=== PATIENT | female | born 1945 | race Caucasian/White ===

== ENCOUNTER → 2016-12-24 | Outpatient (CLI) | payer MEDICARE, OTHER ==
[~2016-12-24] MED LIST: DENOSUMAB 60 MG/ML 1 ML SYRINGE SQ NR
[2016-12-24 09:06] VITALS: BP 177/84; PULSE 88; RESP 16; TEMP 98.6
== END | disposition home or self-care (01) ==
LOC: PROCWHC3 08:41
PROVIDERS: ATTEND Family Medicine
DX: M81.0 Age-related osteoporosis without current pathological fracture (principal)
CPT/HCPCS: 96372; J0897

== ENCOUNTER → 2017-06-30 | Outpatient (CLI) | payer MEDICARE, OTHER ==
[~2017-06-30] MED LIST changes: -DENOSUMAB 60 MG/ML 1 ML SYRINGE SQ NR; +DENOSUMAB 60 MG/ML 1 ML SYRINGE SQ ONE
[2017-06-30 08:01] VITALS: BP 146/65; PULSE 66; RESP 18; TEMP 99.3
== END | disposition home or self-care (01) ==
LOC: PROCWHC3 07:44
PROVIDERS: ATTEND Family Medicine
DX: M81.0 Age-related osteoporosis without current pathological fracture (principal)
CPT/HCPCS: 96372; J0897

== ENCOUNTER → 2017-07-20 | Outpatient (CLI) | payer MEDICARE, OTHER ==
--- NOTE | 2017-07-22 11:35 | MM ---
Reason for exam: screening (asymptomatic). Last mammogram was performed 1 year ago. History: Patient is postmenopausal and is nulliparous. Family history of breast cancer in aunt. Took estrogen for 1 year 6 months beginning at age 56. Physical Findings: A clinical breast exam by your physician is recommended on an annual basis and results should be correlated with mammographic findings. MG 3D Screening Mammo W/Cad Bilateral CC and MLO view(s) were taken. Prior study comparison: July 16, 2016, right breast MG 3d work up w/cad RT. July 11, 2016, bilateral MG 3d screening mammo w/cad. Focal asymmetry in the right CC view. No significant changes when compared with prior studies. ASSESSMENT: Benign, BI-RAD 2 RECOMMENDATION: Routine screening mammogram of both breasts in 1 year.
== END | disposition home or self-care (01) ==
LOC: RADMAMWWP 08:11
PROVIDERS: ATTEND Family Medicine
DX: Z12.31 Encounter for screening mammogram for malignant neoplasm of breast (principal)
CPT/HCPCS: 77063; G0202

== ENCOUNTER → 2018-01-13 | Outpatient (CLI) | payer MEDICARE, OTHER ==
[2018-01-13 08:49] VITALS: BP 153/81; PULSE 72; RESP 16; TEMP 98.1
== END | disposition home or self-care (01) ==
LOC: PROCWHC3 08:16
PROVIDERS: ATTEND Family Medicine
DX: M81.0 Age-related osteoporosis without current pathological fracture (principal)
CPT/HCPCS: 96372; J0897

== ENCOUNTER → 2018-08-03 | Outpatient (CLI) | payer MEDICARE, OTHER ==
--- NOTE | 2018-08-03 09:42 | MM ---
Reason for exam: additional evaluation requested from prior study. Last mammogram was performed 1 year ago. History: Patient is postmenopausal and is nulliparous. Family history of breast cancer in aunt. Took estrogen for 1 year 6 months beginning at age 56. Physical Findings: Nurse did not find any significant physical abnormalities on exam. MG 3D Diag Mammo W/Cad AVERY Bilateral CC and MLO view(s) were taken. Prior study comparison: July 20, 2017, bilateral MG 3d screening mammo w/cad. July 16, 2016, right breast MG 3d work up w/cad RT. There are scattered fibroglandular densities. Finding: There are typically benign circumscribed round masses in the right breast. No suspicious abnormality. No significant changes in finding since July 20, 2017 and July 16, 2016. These results were verbally communicated with the patient and result sheet given to the patient on 08/03/18. ASSESSMENT: Benign, BI-RAD 2 RECOMMENDATION: Routine screening mammogram of both breasts in 1 year.
== END ==
LOC: RADMAMWWP 07:54
PROVIDERS: ATTEND Family Medicine
DX: Z12.31 Encounter for screening mammogram for malignant neoplasm of breast (principal); R92.8 Other abnormal and inconclusive findings on diagnostic imaging of breast
CPT/HCPCS: 77066; G0279; 77062

== ENCOUNTER → 2018-08-03 | Outpatient (CLI) | payer MEDICARE, OTHER ==
[2018-08-03 09:40] VITALS: BP 166/75; PULSE 73; RESP 16; TEMP 97.6
== END ==
LOC: PROCWHC3 09:18
PROVIDERS: ATTEND Family Medicine
DX: M81.0 Age-related osteoporosis without current pathological fracture (principal)
CPT/HCPCS: 96372; J0897

== ENCOUNTER → 2019-02-03 | Outpatient (CLI) | payer MEDICARE, OTHER ==
[2019-02-03 11:15] VITALS: BP 134/75; PULSE 70; RESP 18; TEMP 97.6
== END ==
LOC: PROCWHC3 10:55
PROVIDERS: ATTEND Family Medicine
DX: M81.0 Age-related osteoporosis without current pathological fracture (principal)
CPT/HCPCS: 96372; J0897

== ENCOUNTER → 2019-07-29 | Outpatient (CLI) | payer MEDICARE, OTHER ==
--- NOTE | 2019-07-29 13:32 | US ---
EXAMINATION TYPE: US venous doppler duplex LE LT DATE OF EXAM: 07/29/2019 1:22 PM COMPARISON: NONE CLINICAL HISTORY: L leg, I83.893 Varicose vein of Lower leg. Left leg edema. SIDE PERFORMED: Left TECHNIQUE: The lower extremity deep venous system is examined utilizing real time linear array sonog saniya with graded compression, doppler sonography and color-flow sonography. VESSELS IMAGED: External Iliac Vein (EIV) Common Femoral Vein Deep Femoral Vein Greater Saphenous Vein * Femoral Vein Popliteal Vein Small Saphenous Vein * Proximal Calf Veins (* superficial vessels) Left Leg: Negative for DVT Grayscale, color doppler, spectral doppler imaging performed of the deep veins of the left lower extr emity. There is normal flow, compressibility, vascular waveforms. IMPRESSION: No sonographic evidence of deep venous thrombosis within the left lower extremity.
== END | disposition home or self-care (01) ==
LOC: RADUSWWP 12:57
PROVIDERS: ATTEND Family Medicine
DX: I83.893 Varicose veins of bilateral lower extremities with other complications (principal)

== ENCOUNTER → 2019-08-08 | Outpatient (CLI) | payer MEDICARE, OTHER ==
[~2019-08-08] MED LIST changes: +DENOSUMAB 60 MG/ML 1 ML SYRINGE SQ NR; -DENOSUMAB 60 MG/ML 1 ML SYRINGE SQ ONE
[2019-08-08 11:23] VITALS: BP 144/81; PULSE 72; RESP 16; TEMP 98.4
== END | disposition home or self-care (01) ==
LOC: PROCWHC3 10:49
PROVIDERS: ATTEND Family Medicine
DX: M81.0 Age-related osteoporosis without current pathological fracture (principal)
CPT/HCPCS: 96372; J0897

== ENCOUNTER → 2019-09-02 | Outpatient (CLI) | payer MEDICARE, OTHER ==
--- NOTE | 2019-09-02 11:48 | CT ---
EXAMINATION TYPE: CT sinus wo con DATE OF EXAM: 09/02/2019 COMPARISON: HISTORY: Sinusitis CT DLP: [address] of the paranasal sinuses was performed in the axial and coronal planes. Bone and soft tissue settings are submitted. The paranasal sinuses demonstrate normal aeration and development. The paranasal sinuses are free of mucosal thickening or air fluid level. The osteal meatal units are patent bilaterally. The nasal septum is midline. No bony destructive changes are seen within the field of view. IMPRESSION: Normal unenhanced CT of the paranasal sinuses.
== END | disposition home or self-care (01) ==
LOC: RADCTMAIN 11:23
PROVIDERS: ATTEND Otolaryngology
DX: J32.9 Chronic sinusitis, unspecified (principal)
CPT/HCPCS: 70486

== ENCOUNTER → 2019-10-04 | Outpatient (CLI) | payer MEDICARE, OTHER ==
--- NOTE | 2019-10-10 11:38 | MM ---
Reason for exam: screening (asymptomatic). Last mammogram was performed 1 year and 2 months ago. History: Patient is postmenopausal and is nulliparous. Family history of breast cancer in aunt. Took estrogen for 1 year 6 months beginning at age 56. Physical Findings: A clinical breast exam by your physician is recommended on an annual basis and results should be correlated with mammographic findings. MG 3D Screening Mammo W/Cad Bilateral CC and MLO view(s) were taken. CV view(s) were taken of the left breast. Prior study comparison: August 03, 2018, bilateral MG 3d diag mammo w/cad AVERY. July 20, 2017, bilateral MG 3d screening mammo w/cad. There are scattered fibroglandular densities. There are benign appearing round calcifications in the left breast. There is chronic nodularity bilaterally. There is no new dominant lesion. Asymmetric breast tissue in the right breast. ASSESSMENT: Benign, BI-RAD 2 RECOMMENDATION: Routine screening mammogram of both breasts in 1 year.
== END | disposition home or self-care (01) ==
LOC: RADMAMWWP 09:00
PROVIDERS: ATTEND Family Medicine
DX: Z12.31 Encounter for screening mammogram for malignant neoplasm of breast (principal)
CPT/HCPCS: 77063; 77067

== ENCOUNTER → 2020-02-16 | Outpatient (CLI) | payer MEDICARE, OTHER ==
[2020-02-16 07:34] VITALS: BP 163/84; PULSE 90; RESP 16; TEMP 98.6
== END | disposition home or self-care (01) ==
LOC: PROCWHC3 07:14
PROVIDERS: ATTEND Family Medicine
DX: M81.0 Age-related osteoporosis without current pathological fracture (principal)
CPT/HCPCS: 96372; J0897

== ENCOUNTER → 2020-08-22 | Outpatient (CLI) | payer MEDICARE, OTHER ==
[~2020-08-22] MED LIST changes: -DENOSUMAB 60 MG/ML 1 ML SYRINGE SQ NR; +DENOSUMAB 60 MG/ML 1 ML SYRINGE SQ ONE
[2020-08-22 08:18] VITALS: BP 163/84; PULSE 66; RESP 16; TEMP 97.6
== END | disposition home or self-care (01) ==
LOC: PROCWHC3 07:48
PROVIDERS: ATTEND Family Medicine
DX: M81.0 Age-related osteoporosis without current pathological fracture (principal)
CPT/HCPCS: 96372; J0897

== ENCOUNTER → 2020-11-20 | Outpatient (CLI) | payer MEDICARE, OTHER ==
--- NOTE | 2020-11-20 11:59 | MM ---
Reason for exam: screening (asymptomatic). Last mammogram was performed 1 year and 2 months ago. History: Patient is postmenopausal and is nulliparous. Family history of breast cancer in aunt. Took estrogen for 1 year 6 months beginning at age 56. Physical Findings: A clinical breast exam by your physician is recommended on an annual basis and results should be correlated with mammographic findings. MG 3D Screening Mammo W/Cad Bilateral CC and MLO view(s) were taken. Prior study comparison: October 04, 2019, bilateral MG 3d screening mammo w/cad. August 03, 2018, bilateral MG 3d diag mammo w/cad AVERY. There are scattered fibroglandular densities. There is chronic nodularity bilaterally. Focal asymmetry 8mm left middle depth on MLO CC . This finding is changed when compared with previous exams. ASSESSMENT: Incomplete: need additional imaging evaluation, BI-RAD 0 RECOMMENDATION: Special view mammogram of the left breast. If lesion persists on supplemental views, image directed ultrasound is recommended. [facility] will attempt to contact patient to return for supplemental views and ultrasound if indicated.
== END ==
LOC: RADMAMWWP 07:36
PROVIDERS: ATTEND Family Medicine
DX: Z12.31 Encounter for screening mammogram for malignant neoplasm of breast (principal); Z78.0 Asymptomatic menopausal state
CPT/HCPCS: 77063; 77067

== ENCOUNTER → 2020-11-26 | Outpatient (CLI) | payer MEDICARE, OTHER ==
--- NOTE | 2020-11-26 10:47 | MM ---
Reason for exam: additional evaluation requested from abnormal screening. Last mammogram was performed less than 1 month ago. History: Patient is postmenopausal and is nulliparous. Family history of breast cancer in aunt. Took estrogen for 1 year 6 months beginning at age 56. Physical Findings: Nurse did not find any significant physical abnormalities on exam. MG 3D Work Up W/Cad LT Spot compression CC and LM view(s) were taken of the left breast. Prior study comparison: November 20, 2020, bilateral MG 3d screening mammo w/cad. October 04, 2019, bilateral MG 3d screening mammo w/cad. August 03, 2018, bilateral MG 3d diag mammo w/cad AVERY. July 20, 2017, bilateral MG 3d screening mammo w/cad. July 11, 2016, bilateral MG 3d screening mammo w/cad. March 14, 2011, bilateral digital screening mammo w/CAD. There are scattered fibroglandular densities. 7mm elongated asymmetric density while more defined, has an appearance similar to 2010. Not seen on the MLO or lateral view, 6 month follow up recommended. These results were verbally communicated with the patient and result sheet given to the patient on 11/26/20. ASSESSMENT: Probably benign, BI-RAD 3 RECOMMENDATION: Follow-up diagnostic mammogram of the left breast in 6 months.
== END ==
LOC: RADMAMWWP 09:39
PROVIDERS: ATTEND Family Medicine
DX: R92.8 Other abnormal and inconclusive findings on diagnostic imaging of breast (principal)
CPT/HCPCS: 77065; G0279; 77061

== ENCOUNTER → 2021-02-21 | Outpatient (CLI) | payer MEDICARE, OTHER ==
[~2021-02-21] MED LIST changes: +DENOSUMAB 60 MG/ML 1 ML SYRINGE SQ NR; -DENOSUMAB 60 MG/ML 1 ML SYRINGE SQ ONE
[2021-02-21 08:08] VITALS: BP 140/73; PULSE 71; RESP 18; TEMP 98.6
== END ==
LOC: PROCWHC3 07:46
PROVIDERS: ATTEND Family Medicine
DX: M81.0 Age-related osteoporosis without current pathological fracture (principal); Z88.6 Allergy status to analgesic agent; Z88.5 Allergy status to narcotic agent; Z88.1 Allergy status to other antibiotic agents
CPT/HCPCS: 96372

== ENCOUNTER → 2021-06-04 | Outpatient (CLI) | payer MEDICARE, OTHER ==
--- NOTE | 2021-06-04 10:07 | MM ---
Reason for exam: follow-up at short interval from prior study. Last mammogram was performed 6 months ago. History: Patient is postmenopausal and is nulliparous. Family history of breast cancer in aunt. Took estrogen for 1 year 6 months beginning at age 56. Physical Findings: Nurse did not find any significant physical abnormalities on exam. MG 3D Diag Mammo W/Cad LT CC, MLO, and XCCL view(s) were taken of the left breast. Prior study comparison: November 20, 2020, bilateral MG 3d screening mammo w/cad. October 04, 2019, bilateral MG 3d screening mammo w/cad. There are scattered fibroglandular densities. There are benign appearing round calcifications in the left breast. There is chronic nodularity in the left breast. There is no discrete abnormality. These results were verbally communicated with the patient and result sheet given to the patient on 06/04/21. ASSESSMENT: Benign, BI-RAD 2 RECOMMENDATION: Return to routine screening mammogram schedule for both breasts. Back on schedule.
== END | disposition home or self-care (01) ==
LOC: RADMAMWWP 08:06
PROVIDERS: ATTEND Family Medicine
DX: N64.89 Other specified disorders of breast (principal); R92.1 Mammographic calcification found on diagnostic imaging of breast; Z78.0 Asymptomatic menopausal state; Z80.3 Family history of malignant neoplasm of breast; Z79.818 Long term (current) use of other agents affecting estrogen receptors and estrogen levels
CPT/HCPCS: 77065; G0279; 77061

== ENCOUNTER → 2021-08-26 | Outpatient (CLI) | payer MEDICARE, OTHER ==
[2021-08-26 09:51] VITALS: BP 190/86; PULSE 86; RESP 16; TEMP 97.8
== END ==
LOC: PROCWHC3 08:44
PROVIDERS: ATTEND Family Medicine
DX: M81.0 Age-related osteoporosis without current pathological fracture (principal); Z88.6 Allergy status to analgesic agent; Z88.5 Allergy status to narcotic agent; Z88.1 Allergy status to other antibiotic agents
CPT/HCPCS: 96372; J0897

== ENCOUNTER → 2021-11-21 | Outpatient (CLI) | payer MEDICARE, OTHER ==
--- NOTE | 2021-11-25 10:52 | MM ---
Reason for exam: screening (asymptomatic). Last mammogram was performed 6 months ago. History: Patient is postmenopausal and is nulliparous. Family history of breast cancer in aunt. Took estrogen for 1 year 6 months beginning at age 56. Physical Findings: A clinical breast exam by your physician is recommended on an annual basis and results should be correlated with mammographic findings. MG 3D Screening Mammo W/Cad Bilateral CC and MLO view(s) were taken. Prior study comparison: June 04, 2021, left breast MG 3d diag mammo w/cad LT. November 26, 2020, left breast MG 3d work up w/cad LT. There are scattered fibroglandular densities. There is chronic nodularity bilaterally. No significant changes when compared with prior studies. ASSESSMENT: Benign, BI-RAD 2 RECOMMENDATION: Routine screening mammogram of both breasts in 1 year.
== END | disposition home or self-care (01) ==
LOC: RADMAMWWP 07:55
PROVIDERS: ATTEND Family Medicine
DX: Z12.31 Encounter for screening mammogram for malignant neoplasm of breast (principal); Z78.0 Asymptomatic menopausal state; Z80.3 Family history of malignant neoplasm of breast
CPT/HCPCS: 77063; 77067

== ENCOUNTER 2021-12-09 14:46 | Observation (INO) | payer MEDICARE, OTHER ==
[2021-12-09 15:51] LABS: Basophils % (A) 1 %; Eosinophils # (A) 0.1 k/uL (0-0.7); Eosinophils % (A) 2 %; HCT 47.7 % (34.0-46.0); HGB 15.1 gm/dL (11.4-16.0); Lymphocytes # (A) 1.4 k/uL (1.0-4.8); Lymphocytes % (A) 28 %; MCH 30.7 pg (25.0-35.0); MCHC 31.6 g/dL (31.0-37.0); MCV 97.3 fL (80.0-100.0); Mean Platelet Volume 9.6; Monocytes # (A) 0.4 k/uL (0-1.0); Monocytes % (A) 8 %; Neutrophils % (A) 61 %; Platelet Count 156 k/uL (150-450); RDW 13.2 % (11.5-15.5)
[2021-12-09 16:00] LABS: Partial Thromboplastin Time 22.4 sec (22.0-30.0); Prothrombin Time 10.5 sec (9.0-12.0)
[2021-12-09 16:02] LABS: ALT 19 U/L (4-34); AST 25 U/L (14-36); African American GFR (CKD) >90 (>60 ml/min/1.73 sqM); Albumin 4.5 g/dL (3.5-5.0); Alkaline Phosphatase 69 U/L (38-126); Anion Gap 10 mmol/L; Blood Urea Nitrogen 12 mg/dL (7-17); Calcium 9.4 mg/dL (8.4-10.2); Carbon Dioxide 25 mmol/L (22-30); Chloride 107 mmol/L (98-107); Glucose 117 mg/dL (74-99); Non-African American GFR(CKD) 86 (>60 ml/min/1.73 sqM); Sodium 142 mmol/L (137-145); Total Bilirubin 0.7 mg/dL (0.2-1.3); Total Protein 7.8 g/dL (6.3-8.2)
--- NOTE | 2021-12-09 16:13 | XR ---
EXAMINATION TYPE: XR chest 2V DATE OF EXAM: 12/09/2021 COMPARISON: Chest x-ray 04/02/2011 HISTORY: Chest pain TECHNIQUE: Frontal and lateral views of the chest are obtained. FINDINGS: There is no focal air space opacity, pleural effusion, or pneumothorax seen. The cardiac silhouette size is within normal limits. Aorta is dense The osseous structures are significant for a rthropathy acromioclavicular joints similar to prior, there is multilevel thoracic spondylosis. There are overlying leads. IMPRESSION: No acute cardiopulmonary process.
[2021-12-09] MEDS ORDERED: NALOXONE 0.4 MG/ML 1 ML VIAL IV PRN (16:36)
--- NOTE | 2021-12-09 16:36 | ED ---
General Adult HPI - General Chief complaint: Chest Pain Stated complaint: Chest Pain Time Seen by Provider: 12/09/21 15:03 Source: patient, RN notes reviewed, old records reviewed Mode of arrival: ambulatory Limitations: no limitations - History of Present Illness Initial comments: Patient is a 76-year-old female with past medical history remarkable for obesity, family medical history of cardiac disease, hypertension, hyperlipidemia who presents emergency Department complaining of intermittent chest pain/discomfort over the last week. She states it is over the superior aspect substernally with no known palliative or provocative factors except for sometimes turning her neck. States she has chronic bilateral shoulder discomfort as well which is been unchanged. EKG was done at the outside physician's office and there was concern and wanted her to be evaluated for her chest pain. 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 No shortness of breath. Denies abdominal pain, nausea, vomiting. Denies any current symptoms including chest pain. His no other acute complaints at this time. Denies fevers, chills, cough. Presents over concern for chest pain. - Related Data Home Medications Medication Instructions Recorded Confirmed Aspirin 325 mg PO DAILY 12/24/16 12/09/21 Cetirizine HCl [Zyrtec] 10 mg PO DAILY 12/24/16 12/09/21 Pravastatin Sodium [Pravachol] 40 mg PO DAILY 12/24/16 12/09/21 allopurinoL [Zyloprim] 100 mg PO DAILY 12/24/16 12/09/21 amLODIPine BESYLATE/BENAZEPRIL 1 cap PO DAILY 12/24/16 12/09/21 [amLODIPine BESYLATE/BENAZEPRIL 5-20 mg] Cholecalciferol [Vitamin D3 (125 125 mcg PO DAILY 12/09/21 12/09/21 Mcg = 5000 Iu)] Cinnamon Bark [Cinnamon] 1,000 mg PO DAILY 12/09/21 12/09/21 Cyanocobalamin (Vitamin B-12) 1,000 mcg PO DAILY 12/09/21 12/09/21 [Vitamin B-12] Docusate [Colace] 200 mg PO DAILY 12/09/21 12/09/21 Psyllium Husk [Metamucil] 0.4 gm PO DAILY 12/09/21 12/09/21 Allergies Allergy/AdvReac Type Severity Reaction Status Date / Time cefaclor [From Ceclor] Allergy Dyspnea Verified 12/09/21 16:22 hydrocodone [From Vicodin] Allergy Nausea Verified 12/09/21 16:22 moxifloxacin [From Avelox] Allergy Dyspnea Verified 12/09/21 16:22 Review of Systems ROS Statement: Those systems with pertinent positive or pertinent negative responses have been documented in the HPI. Review of Systems: CONST: Denies fever EYES: Denies blurry vision ENT: Denies nasal congestion C/V: Denies current chest pain. RESP: Denies shortness of breath GI: Denies abdominal pain : Denies dysuria SKIN: Denies rash. MSK: Denies joint pain. NEURO: Denies headache ROS Other: All systems not noted in ROS Statement are negative. Past Medical History Past Medical History: Hyperlipidemia, Hypertension, Osteoarthritis (OA) Additional Past Medical History / Comment(s): L wrist fx December 02 History of Any Multi-Drug Resistant Organisms: None Reported Past Surgical History: Orthopedic Surgery Additional Past Surgical History / Comment(s): eye surgery repair retina/cataracts 2010 shattered left ankle. LEFT ROTATOR CUFF SURGERY - 2019 Past Anesthesia/Blood Transfusion Reactions: No Reported Reaction Past Psychological History: No Psychological Hx Reported Smoking Status: Never smoker - Past Family History Father Family Medical History: Diabetes Mellitus Additional Family Medical History / Comment(s): quadruple bypass Mother Family Medical History: AFIB Son(s) Family Medical History: Asthma Additional Family Medical History / Comment(s): exzema Daughter(s) Additional Family Medical History / Comment(s): psoriasis and psoriatic arthritis General Exam - General Exam Comments Initial Comments: General: Appears in no acute distress. HEAD: Normal with no signs of head trauma. EYES: PERRLA, EOMI, conjunctiva normal, no discharge. ENT: Hearing grossly intact, normal oropharynx. RESPIRATORY: Clear breath sounds bilaterally. No wheezes, rales, or rhonchi. C/V: Regular rate and rhythm. S1 and S2 auscultated, no edema, peripheral pulses 2+ and intact throughout ABD: Abd is soft, nontender, nondistended EXT: Normal range of motion, no obvious deformity SKIN: No rashes or lesions observed on exposed skin. NEURO: Alert and oriented x 4. Cranial nerves II-XII intact. No focal sensory or strength deficits. Limitations: no limitations Course Vital Signs 12/09/21 14:48 Temperature 97.6 F Pulse Rate 92 Respiratory 18 Rate Blood Pressure 153/80 O2 Sat by Pulse 97 Oximetry Medical Decision Making - Medical Decision Making The patient's presentation and physical exam, I'm concerned for cardiopulmonary etiology for her current symptoms. Therefore cardiac workup will be obtained. She currently is asymptomatic at this time. Patient already received 325mg aspirin at the primary care physician office. She was in agreement this plan. It could be muscle skeletal in nature. EKG showed no signs of acute ischemia. Chest x-ray revealed no acute cardiopulmonary process. Laboratory studies are remarkable for a negative troponin. Remainder the labs are unremarkable. On reevaluation, patient's chest pain remains asymptomatic. Patient's heart score is moderate at 4. I discussed results with her. I would like to admitted to the hospital at this time to observation telemetry. Patient was in agreement this plan.Patient's vital signs throughout her stay remain within normal limits. She remains asymptomatic throughout her initial stay in the emergency department prior to admission. I spoke with the admitting physician, Dr. Crespo who was in agreement with the plan. Patient was admitted to observation telemetry. Cardiology is consulted to evaluate the patient the morning. Troponins will be trended. - Lab Data Result diagrams: 12/09/21 15:46 12/09/21 15:46 Lab Results 12/09/21 12/09/21 12/09/21 Range/Units 15:46 15:46 15:46 WBC 5.0 (3.8-10.6) k/uL RBC 4.90 (3.80-5.40) m/uL Hgb 15.1 (11.4-16.0) gm/dL Hct 47.7 H (34.0-46.0) % MCV 97.3 (80.0-100.0) fL MCH 30.7 (25.0-35.0) pg MCHC 31.6 (31.0-37.0) g/dL RDW 13.2 (11.5-15.5) % Plt Count 156 (150-450) k/uL MPV 9.6 Neutrophils % 61 % Lymphocytes % 28 % Monocytes % 8 % Eosinophils % 2 % Basophils % 1 % Neutrophils # 3.0 (1.3-7.7) k/uL Lymphocytes # 1.4 (1.0-4.8) k/uL Monocytes # 0.4 (0-1.0) k/uL Eosinophils # 0.1 (0-0.7) k/uL Basophils # 0.0 (0-0.2) k/uL PT 10.5 (9.0-12.0) sec INR 1.0 (<1.2) APTT 22.4 (22.0-30.0) sec Sodium 142 (137-145) mmol/L Potassium 4.0 (3.5-5.1) mmol/L Chloride 107 (98-107) mmol/L Carbon Dioxide 25 (22-30) mmol/L Anion Gap 10 mmol/L BUN 12 (7-17) mg/dL Creatinine 0.69 (0.52-1.04) mg/dL Est GFR (CKD-EPI)AfAm >90 (>60 ml/min/1.73 sqM) Est GFR (CKD-EPI)NonAf 86 (>60 ml/min/1.73 sqM) Glucose 117 H (74-99) mg/dL Calcium 9.4 (8.4-10.2) mg/dL Magnesium 2.0 (1.6-2.3) mg/dL Total Bilirubin 0.7 (0.2-1.3) mg/dL AST 25 (14-36) U/L ALT 19 (4-34) U/L Alkaline Phosphatase 69 (38-126) U/L Troponin I (0.000-0.034) ng/mL Total Protein 7.8 (6.3-8.2) g/dL Albumin 4.5 (3.5-5.0) g/dL 12/09/21 Range/Units 15:46 WBC (3.8-10.6) k/uL RBC (3.80-5.40) m/uL Hgb (11.4-16.0) gm/dL Hct (34.0-46.0) % MCV (80.0-100.0) fL MCH (25.0-35.0) pg MCHC (31.0-37.0) g/dL RDW (11.5-15.5) % Plt Count (150-450) k/uL MPV Neutrophils % % Lymphocytes % % Monocytes % % Eosinophils % % Basophils % % Neutrophils # (1.3-7.7) k/uL Lymphocytes # (1.0-4.8) k/uL Monocytes # (0-1.0) k/uL Eosinophils # (0-0.7) k/uL Basophils # (0-0.2) k/uL PT (9.0-12.0) sec INR (<1.2) APTT (22.0-30.0) sec Sodium (137-145) mmol/L Potassium (3.5-5.1) mmol/L Chloride (98-107) mmol/L Carbon Dioxide (22-30) mmol/L Anion Gap mmol/L BUN (7-17) mg/dL Creatinine (0.52-1.04) mg/dL Est GFR (CKD-EPI)AfAm (>60 ml/min/1.73 sqM) Est GFR (CKD-EPI)NonAf (>60 ml/min/1.73 sqM) Glucose (74-99) mg/dL Calcium (8.4-10.2) mg/dL Magnesium (1.6-2.3) mg/dL Total Bilirubin (0.2-1.3) mg/dL AST (14-36) U/L ALT (4-34) U/L Alkaline Phosphatase (38-126) U/L Troponin I <0.012 (0.000-0.034) ng/mL Total Protein (6.3-8.2) g/dL Albumin (3.5-5.0) g/dL - EKG Data -: EKG Interpreted by Me EKG Comments: 12-lead Electrocardiogram Interpretation Note EKG was reviewed and interpreted by myself. 12-lead ECG performed at 1501 is interpreted by me as revealing normal sinus rhythm at a rate of 75 beats per minute. [place] is normal. VT interval is 126 ms, QRS duration is 92 ms, QTc is 409 ms.. There were no ST or T wave abnormalities to suggest myocardial ischemia or injury. R wave progression across the precordium was satisfactory. By my interpretation this EKG is non-diagnostic for acute ischemia. Disposition Clinical Impression: Chest pain of unknown etiology Disposition: ADMITTED IP TO THIS [facility] Condition: Stable Referrals: Neil Rivera MD [Primary Care Provider] - 1-2 days
--- NOTE | 2021-12-09 17:29 | P.HPIM ---
History of Present Illness H&P Date: 12/09/21 History of Presenting Illness: Patient is a very pleasant 76-year-old female with past medical history of nonobstructive coronary artery disease, hypertension, hyperlipidemia, osteoarthritis, previous PE status post long bone fracture (no longer on anticoagulation) and obesity. She presented to the emergency department with a chief complaint of chest pain/discomfort. Patient reports experiencing intermittent chest pain over the past week. She reports this pain is similar to the pain she gets from her osteoarthritis, but also states that this is dif ferent because this pain has continued throughout the week and will present at any time including while at rest or with movement, but is not reproducible. Patient denies having any associated symptoms including headache, lightheadedness, dizziness, palpitations, cough, congestion, or shortness of b reath. She reports chronic bilateral lower extremity edema worse on the left resulting from previous injury and surgical repair and states this edema is unchanged. Patient states a significant family history of cardiovascular disease and reports that she was seen by a tier lift operator, Dr. Ja steven oximately 16 years ago and states at that time she underwent a stress test which was abnormal and was then taken for cardiac cath, patient states that she does not recall the exact findings of the cardiac cath but remembers the tier lift operator telling her that she only had a 20% blockage and that it was nothing to worry about. In the emergency department patient underwent full evaluation. EKG was completed showing normal sinus rhythm at 75 bpm with no noted T-wave or ST abnormalities showing no signs of acute ischemia. Chest x-ray was negative for acute cardiopulmonary process. CBC, CMP, and coags all unremarkable. Troponin less than 0.012. Vital signs stable. Patient was admitted under our services with consultation to cardiology. Review of systems: Pertinent positives and negatives as discussed in HPI, a complete review of systems was performed and all other systems are negative. Physical exam: Vital signs reviewed and stable. General: Nontoxic, no distress and appears stated age. Derm: Skin warm and dry, normal coloration for ethnicity. Head: Atraumatic, normocephalic and symmetric. Eyes: EOMs intact, no lid lag, and anicteric sclera Mouth: no lip lesions, mucus membranes moist Cardiovascular: regular rate and rhythm with normal S1S2, no murmur, positive posterior tibial pulses bilaterally, and cap refill < 2 seconds. Lungs: Respirations even, regular, and unlabored on room air. Lungs CTA bilaterally, no rhonchi, no rales, no wheezing, and no accessory muscle usage. Abdominal: Obese abdomen soft, nontender to palpation, no guarding, no appreciable organomegaly Ext: ROM intact. No gross muscle atrophy, bilateral lower extremity edema worse on left, no contractures. Bilateral lower extremity venous discoloration. Neuro: Speech clear, face symmetrical and CN II-XII grossly intact with no noted focal neuro deficits Psych: Alert and oriented to person, place, time, and situation. Appropriate and pleasant affect. Assessment and Plan of Care: Chest pain, rule out acute coronary event -Cardiology consult, appreciate further recommendations -Telemetry monitoring -Trend troponins -Cardiac diet, NPO at midnight -Aspirin, atorvastatin, and metoprolol -Lipid profile with a.m. labs. -Echocardiogram Hypertension -Monitor vital signs and continue daily medication regimen with amlodipine/benazepril. Hyperlipidemia -Continue daily medication regimen with pravastatin. -Lipid profile with a.m. labs The patient is admitted with an anticipated less than 2 midnight stay for evaluation of chest pain. CODE STATUS: DO NOT RESUSCITATE/DO NOT INTUBATE DVT prophylaxis: Heparin Discussed with: Patient and RN Anticipated discharge date: 1-[address]: Home A total of 41 minutes was spent on the care of this complex patient more than 50% of the time was spent in counseling and care coordination. I reviewed the documentation as provided by the NATHALIA above, who is the original author of this note. I agree with the documented assessment and plan, with the following changes: none Past Medical History Past Medical History: Hyperlipidemia, Hypertension, Osteoarthritis (OA) Additional Past Medical History / Comment(s): L wrist fx December 02 History of Any Multi-Drug Resistant Organisms: None Reported Past Surgical History: Orthopedic Surgery Additional Past Surgical History / Comment(s): eye surgery repair retina/cataracts 2011 shattered left ankle. LEFT ROTATOR CUFF SURGERY - 2019 Past Anesthesia/Blood Transfusion Reactions: No Reported Reaction Past Psychological History: No Psychological Hx Reported Smoking Status: Never smoker - Past Family History Father Family Medical History: Diabetes Mellitus Additional Family Medical History / Comment(s): quadruple bypass Mother Family Medical History: AFIB Son(s) Family Medical History: Asthma Additional Family Medical History / Comment(s): exzema Daughter(s) Additional Family Medical History / Comment(s): psoriasis and psoriatic arthritis Medications and Allergies Home Medications Medication Instructions Recorded Confirmed Type Aspirin 325 mg PO DAILY 12/24/16 12/09/21 History Cetirizine HCl [Zyrtec] 10 mg PO DAILY 12/24/16 12/09/21 History Pravastatin Sodium [Pravachol] 40 mg PO DAILY 12/24/16 12/09/21 History allopurinoL [Zyloprim] 100 mg PO DAILY 12/24/16 12/09/21 History amLODIPine BESYLATE/BENAZEPRIL 1 cap PO DAILY 12/24/16 12/09/21 History [amLODIPine BESYLATE/BENAZEPRIL 5-20 mg] Cholecalciferol [Vitamin D3 (125 125 mcg PO DAILY 12/09/21 12/09/21 History Mcg = 5000 Iu)] Cinnamon Bark [Cinnamon] 1,000 mg PO DAILY 12/09/21 12/09/21 History Cyanocobalamin (Vitamin B-12) 1,000 mcg PO DAILY 12/09/21 12/09/21 History [Vitamin B-12] Docusate [Colace] 200 mg PO DAILY 12/09/21 12/09/21 History Psyllium Husk [Metamucil] 0.4 gm PO DAILY 12/09/21 12/09/21 History Allergies Allergy/AdvReac Type Severity Reaction Status Date / Time cefaclor [From Ceclor] Allergy Dyspnea Verified 12/09/21 16:22 hydrocodone [From Vicodin] Allergy Nausea Verified 12/09/21 16:22 moxifloxacin [From Avelox] Allergy Dyspnea Verified 12/09/21 16:22 Physical Exam Osteopathic Statement: *. No significant issues noted on an osteopathic structural exam other than those noted in the History and Physical/Consult. Vitals: Vital Signs Temp Pulse Resp BP Pulse Ox 12/09/21 14:48 97.6 F 92 18 153/80 97 Intake and Output 12/09/21 12/09/21 12/09/21 06:59 14:59 22:59 Other: Weight 131.995 kg Results CBC & Chem 7: 12/09/21 15:46 12/09/21 15:46 Labs: Abnormal Lab Results - Last 24 Hours (Table) 12/09/21 12/09/21 Range/Units 15:46 15:46 Hct 47.7 H (34.0-46.0) % Glucose 117 H (74-99) mg/dL
[2021-12-09] MEDS: HEPARIN SODIUM,PORCINE/PF 5,000 UNIT/0.5 ML SYRINGE SQ SCH (21:58)
[2021-12-10] MEDS: lisinopriL 20 MG TAB PO SCH (08:10)
[2021-12-10] MEDS: HEPARIN SODIUM,PORCINE/PF 5,000 UNIT/0.5 ML SYRINGE SQ SCH ×2 (08:10→21:11)
[2021-12-10] MEDS: DOCUSATE 100 MG CAP PO SCH (08:10)
[2021-12-10] MEDS: allopurinoL 100 MG TAB PO SCH (08:11)
[2021-12-10] MEDS: CYANOCOBALAMIN 500 MCG TAB PO SCH (08:11)
[2021-12-10] MEDS: CHOLECALCIFEROL 125 MCG (5000 IU) TABLET PO SCH (08:11)
[2021-12-10] MEDS: LORATADINE 10 MG TAB PO SCH (08:11)
[2021-12-10] MEDS: ASPIRIN 325 MG TAB PO SCH (08:11)
[2021-12-10] MEDS ORDERED: amLODIPine 5 MG TAB PO ONE (08:30)
[2021-12-10] MEDS ORDERED: amLODIPine 5 MG TAB PO SCH (09:00)
[2021-12-10 09:10] LABS: African American GFR (CKD) >90 (>60 ml/min/1.73 sqM); Anion Gap 8 mmol/L; Blood Urea Nitrogen 10 mg/dL (7-17); Calcium 8.9 mg/dL (8.4-10.2); Carbon Dioxide 21 mmol/L (22-30); Chloride 111 mmol/L (98-107); Glucose 113 mg/dL (74-99); Non-African American GFR(CKD) 88 (>60 ml/min/1.73 sqM); Potassium 4.3 mmol/L (3.5-5.1); Sodium 140 mmol/L (137-145)
[2021-12-10 09:11] LABS: Basophils % (A) 1 %; Eosinophils # (A) 0.1 k/uL (0-0.7); Eosinophils % (A) 3 %; HCT 47.6 % (34.0-46.0); HGB 15.1 gm/dL (11.4-16.0); Lymphocytes # (A) 1.7 k/uL (1.0-4.8); Lymphocytes % (A) 36 %; MCH 31.4 pg (25.0-35.0); MCHC 31.7 g/dL (31.0-37.0); Mean Platelet Volume 9.2; Monocytes # (A) 0.3 k/uL (0-1.0); Monocytes % (A) 6 %; Neutrophils # (A) 2.5 k/uL (1.3-7.7); Neutrophils % (A) 52 %; Platelet Count 152 k/uL (150-450); RBC 4.81 m/uL (3.80-5.40); RDW 13.6 % (11.5-15.5); WBC 4.8 k/uL (3.8-10.6)
--- NOTE | 2021-12-10 09:30 | P.PN ---
Subjective Progress Note Date: 12/10/21 Hospital course: Patient is a very pleasant 76-year-old female with past medical history of nonobstructive coronary artery disease, hypertension, hyperlipidemia, o steoarthritis, previous PE status post long bone fracture (no longer on anticoagulation) and obesity. She presented to the emergency department with a chief complaint of chest pain/discomfort. Patient reports experiencing intermittent chest pain over the past week. She reports this pain is similar to the pain she gets from her osteoarthritis, but also states that this is different because this pain has continued throughout the week and will present at any time including while at rest or with movement, but is not reproducible. Patient denies having any associated symptoms including headache, lightheadedness, dizziness, palpitations, cough, congestion, or shortness of breath. She reports chronic bilateral lower extremity edema worse on the left resulting from previous injury and surgical repair and states this edema is unchanged. Patient states a significant family history of cardiovascular disease and reports that she was seen by a game design instructor, Dr. Peres approximately 16 years ago and states at that time she underwent a stress test which was abnormal and was then taken for cardiac cath, patient states that she does not recall the exact findings of the cardiac cath but remembers the game design instructor telling her that she only had a 20% blockage and that it was nothing to worry about. In the emergency department patient underwent full evaluation. EKG was completed showing normal sinus rhythm at 75 bpm with no noted T-wave or ST abnormalities showing no signs of acute ischemia. Chest x- ray was negative for acute cardiopulmonary process. CBC, CMP, and coags all unremarkable. Troponin less than 0.012. Vital signs stable. Patient was admitted under our services with consultation to cardiology. 12/11/21: Patient seen and fully evaluated at bedside this morning. Patient was also evaluated by game design instructor, Dr. Blair. Currently patient is free from chest pain and denies having any other complaints including headache, lightheadedness, dizziness, shortness of breath, nausea, vomiting, or experiencing any numbness/tingling/weakness in her extremities. Morning labs reviewed and remain unremarkable. Awaiting echocardiogram to be completed. Cardiology has increase patient's amlodipine from 5 mg to 10 mg daily and started patient on chlorthalidone 25 mg daily. Physical exam: Vital signs reviewed and stable. General: Nontoxic, no distress and appears stated age. Derm: Skin warm and dry, normal coloration for ethnicity. Head: Atraumatic, normocephalic and symmetric. Eyes: EOMs intact, no lid lag, and anicteric sclera Mouth: no lip lesions, mucus membranes moist Cardiovascular: regular rate and rhythm with normal S1S2, no murmur, positive posterior tibial pulses bilaterally, and cap refill < 2 seconds. Lungs: Respirations even, regular, and unlabored on room air. Lungs CTA bilaterally, no rhonchi, no rales, no wheezing, and no accessory muscle usage. Abdominal: Obese abdomen soft, nontender to palpation, no guarding, no appreciable organomegaly Ext: ROM intact. No gross muscle atrophy, bilateral lower extremity edema worse on left, no contractures. Bilateral lower extremity venous discoloration. Neuro: Speech clear, face symmetrical and CN II-XII grossly intact with no noted focal neuro deficits Psych: Alert and oriented to person, place, time, and situation. Appropriate and pleasant affect. Assessment and Plan of Care: Chest pain, rule out acute coronary event -Cardiology consulted, recommended adjustment of blood pressure medications and continued monitoring overnight. -Telemetry monitoring -Troponins negative -EKG negative for ischemic changes. -Cardiac diet -Continuation of aspirin and pravastatin. -Lipid profile -Echocardiogram to be completed Hypertension -Monitor vital signs, medication changes made patient started on chlorthalidone 25 mg daily and amlodipine was increased from 5 mg to 10 mg daily in addition to continuation of daily lisinopril 20 mg. Hyperlipidemia -Continue daily medication regimen with pravastatin. -Lipid profile with a.m. labs CODE STATUS: DO NOT RESUSCITATE/DO NOT INTUBATE DVT prophylaxis: Heparin Discussed with: Patient and RN Anticipated discharge date: Tomorrow morning Anticipated discharge place: Home A total of 36 minutes was spent on the care of this complex patient more than 50% of the time was spent in counseling and care coordination. I reviewed the documentation as provided by the NATHALIA above, who is the original author of this note. I agree with the documented assessment and plan, with the following changes: None Objective - Vital Signs Vital signs: Vital Signs Temp 97.9 F 12/10/21 07:19 Pulse 64 12/10/21 07:19 Resp 16 12/10/21 07:19 BP 187/67 12/10/21 07:19 Pulse Ox 98 12/10/21 07:19 Intake & Output 12/09/21 12/10/21 12/10/21 18:59 06:59 18:59 Intake Total 0 Balance 0 Weight 131.995 kg Intake: Oral 0 Other: Voiding Method Toilet # Voids 2 - Labs CBC & Chem 7: 12/10/21 08:16 12/10/21 08:16 Labs: Abnormal Lab Results - Last 24 Hours (Table) 12/09/21 12/09/21 12/10/21 Range/Units 15:46 15:46 08:16 Hct 47.7 H 47.6 H (34.0-46.0) % Chloride (98-107) mmol/L Carbon Dioxide (22-30) mmol/L Glucose 117 H (74-99) mg/dL 12/10/21 Range/Units 08:16 Hct (34.0-46.0) % Chloride 111 H (98-107) mmol/L Carbon Dioxide 21 L (22-30) mmol/L Glucose 113 H (74-99) mg/dL
--- NOTE | 2021-12-10 10:24 | P.CRDCN ---
History of Present Illness History of present illness: HISTORY OF PRESENTING ILLNESS This is a pleasant 76-year-old female past medical history significant for nonobstructive coronary artery disease, hypertension, dyslipidemia, osteoarthritis, previous pulmonary embolism no longer on anticoagulation, obesity. She does not follow with a blocklayer. We have been asked to see in consultation for chest discomfort. Patient states she normally has chest discomfort due to her osteoarthritis with radiation to her left shoulder. However yesterday she had chest pressure in the center chest also rate into her left shoulder. She states that this was different than her normal pain with osteoarthritis and presented to emergency department for further. She denies any associated palpitations, shortness of breath, lightheadedness, dizziness, syncope or near syncope. She denies any symptoms or diaphoresis, nausea or vomiting. Her chest discomfort is nonexertional. No specific alleviating or aggravating factors. She states that she does have difficulty adhering to a low salt diet. She states she takes her antihypertensives as prescribed. She denies any history of ID, stroke, diabetes. She states approximately 16 years ago she underwent an abnormal stress test and underwent cardiac catheterization that revealed nonobstructive coronary artery disease, no stents were placed. DIAGNOSTICS EKG reveals sinus rhythm, heart rate 75, nonspecific ST-T wave abnormalities in lead III and aVF, no acute ST history of abnormalities Telemetry tracings indicate sinus mechanism Chest xray no acute cardiopulmonary process Laboratory reviewed, troponin negative 3, sodium 140, potassium 4.3, BUN 10, serum creatinine 0.6, CBC unremarkable Current home medications include aspirin 325 mg daily, amlodipine/been aspirin 520 milligrams daily, pravastatin 40 mg daily REVIEW OF SYSTEMS At the time of my exam: CONSTITUTIONAL: Denies fever or chills. CARDIOVASCULAR: Denies chest pain, shortness of breath, orthopnea, PND or palpitations. RESPIRATORY: Denies cough. GASTROINTESTINAL: Denies abdominal pain, diarrhea, constipation, nausea or vomi ting. MUSCULOSKELETAL: Denies myalgias. NEUROLOGIC: Denies numbness, tingling, headache or weakness. ENDOCRINE: Denies fatigue, weight change, polydipsia or polyurina. GENITOURINARY: Denies burning, hematuria or urgency with micturation. HEMATOLOGIC: Denies history of anemia or bleeding. PHYSICAL EXAMINATION Blood pressure 187/67, heart rate 64, afebrile, saturations 98% on room air CONSTITUTIONAL: No apparent distress. HEENT: Head is normocephalic. Pupils are equal, round. Sclerae anicteric. Mucous membranes of the mouth are moist. No JVD. No carotid bruit. CHEST EXAMINATION: Lungs are clear to auscultation. No chest wall tenderness is noted on palpation or with deep breathing. HEART EXAMINATION: Regular rate and rhythm. S1, S2 heard. No murmurs, gallops or rub. ABDOMEN: Soft, nontender. Positive bowel sounds. EXTREMITIES: 2+ peripheral pulses, trace bilateral lower extremity edema and no calf tenderness. SKIN: warm, dry NEUROLOGIC EXAMINATION: Patient is awake, alert and oriented x3. ASSESSMENT Chest discomfort, acute coronary syndrome has been ruled out, likely due to [place] ontrolled hypertension Hypertensive emergency Nonobstructive coronary artery disease History of Hypertension Dyslipidemia, osteoarthritis History of pulmonary embolism no longer on anticoagulation Obesity BMI 52 PLAN An acute coronary event has been ruled out with no EKG evidence of ischemia and negative cardiac enzymes. Obtain 2D echocardiogram and doppler study to assess cardiac structure and function. Increase amlodipine to 10mg daily Add Chlorithalidone 25mg daily Continue statin Continue lisinopril 20mg daily Recommend continue to monitor for additional 24 hours Further recommendations based on clinical course Thank you kindly for this consultation. Nurse practitioner note has been reviewed by physician. Signing provider agrees with the documented findings, assessment, and plan of care. Past Medical History Past Medical History: Hyperlipidemia, Hypertension, Osteoarthritis (OA) Additional Past Medical History / Comment(s): L wrist fx December 02 History of Any Multi-Drug Resistant Organisms: None Reported Past Surgical History: Orthopedic Surgery Additional Past Surgical History / Comment(s): eye surgery repair retina/cataracts 2010 shattered left ankle. LEFT ROTATOR CUFF SURGERY - 2019 Past Anesthesia/Blood Transfusion Reactions: No Reported Reaction Past Psychological History: No Psychological Hx Reported Smoking Status: Never smoker - Past Family History Father Family Medical History: Diabetes Mellitus Additional Family Medical History / Comment(s): quadruple bypass Mother Family Medical History: AFIB Son(s) Family Medical History: Asthma Additional Family Medical History / Comment(s): exzema Daughter(s) Additional Family Medical History / Comment(s): psoriasis and psoriatic arthritis Medications and Allergies Home Medications Medication Instructions Recorded Confirmed Type Aspirin 325 mg PO DAILY 12/24/16 12/09/21 History Cetirizine HCl [Zyrtec] 10 mg PO DAILY 12/24/16 12/09/21 History Pravastatin Sodium [Pravachol] 40 mg PO DAILY 12/24/16 12/09/21 History allopurinoL [Zyloprim] 100 mg PO DAILY 12/24/16 12/09/21 History amLODIPine BESYLATE/BENAZEPRIL 1 cap PO DAILY 12/24/16 12/09/21 History [amLODIPine BESYLATE/BENAZEPRIL 5-20 mg] Cholecalciferol [Vitamin D3 (125 125 mcg PO DAILY 12/09/21 12/09/21 History Mcg = 5000 Iu)] Cinnamon Bark [Cinnamon] 1,000 mg PO DAILY 12/09/21 12/09/21 History Cyanocobalamin (Vitamin B-12) 1,000 mcg PO DAILY 12/09/21 12/09/21 History [Vitamin B-12] Docusate [Colace] 200 mg PO DAILY 12/09/21 12/09/21 History Psyllium Husk [Metamucil] 0.4 gm PO DAILY 12/09/21 12/09/21 History Allergies Allergy/AdvReac Type Severity Reaction Status Date / Time cefaclor [From Ceclor] Allergy Dyspnea Verified 12/09/21 16:22 hydrocodone [From Vicodin] Allergy Nausea Verified 12/09/21 16:22 moxifloxacin [From Avelox] Allergy Dyspnea Verified 12/09/21 16:22 Physical Exam Vitals: Vital Signs Temp Pulse Pulse Resp BP BP Pulse Ox 12/10/21 07:19 97.9 F 64 16 187/67 98 12/10/21 00:54 74 18 12/10/21 00:48 98.0 F 74 18 120/72 12/09/21 20:00 98.1 F 18 149/72 96 12/09/21 16:53 88 18 148/68 98 12/09/21 14:48 97.6 F 92 18 153/80 97 Intake and Output 12/09/21 12/10/21 12/10/21 22:59 06:59 14:59 Intake Total 0 Balance 0 Intake: Oral 0 Other: Voiding Method Toilet # Voids 2 Weight 131.995 kg Results 12/10/21 08:16 12/10/21 08:16 Cardiac Enzymes 12/09/21 12/09/21 12/09/21 Range/Units 15:46 15:46 19:17 AST 25 (14-36) U/L Troponin I <0.012 <0.012 (0.000-0.034) ng/mL 12/09/21 Range/Units 22:48 AST (14-36) U/L Troponin I <0.012 (0.000-0.034) ng/mL Coagulation 12/09/21 Range/Units 15:46 PT 10.5 (9.0-12.0) sec APTT 22.4 (22.0-30.0) sec CBC 12/09/21 Range/Units 15:46 WBC 5.0 (3.8-10.6) k/uL RBC 4.90 (3.80-5.40) m/uL Hgb 15.1 (11.4-16.0) gm/dL Hct 47.7 H (34.0-46.0) % Plt Count 156 (150-450) k/uL Comprehensive Metabolic Panel 12/09/21 Range/Units 15:46 Sodium 142 (137-145) mmol/L Potassium 4.0 (3.5-5.1) mmol/L Chloride 107 (98-107) mmol/L Carbon Dioxide 25 (22-30) mmol/L BUN 12 (7-17) mg/dL Creatinine 0.69 (0.52-1.04) mg/dL Glucose 117 H (74-99) mg/dL Calcium 9.4 (8.4-10.2) mg/dL AST 25 (14-36) U/L ALT 19 (4-34) U/L Alkaline Phosphatase 69 (38-126) U/L Total Protein 7.8 (6.3-8.2) g/dL Albumin 4.5 (3.5-5.0) g/dL Current Medications Generic Name Dose Route Start Last Admin Trade Name Freq PRN Reason Stop Dose Admin Allopurinol 100 mg 12/10/21 09:00 Allopurinol 100 Mg Tab PO DAILY [facility] Amlodipine Besylate 5 mg 12/10/21 09:00 Amlodipine 5 Mg Tab PO DAILY [facility] Aspirin 325 mg 12/10/21 09:00 Aspirin 325 Mg Tab PO DAILY [facility] Cholecalciferol 125 mcg 12/10/21 09:00 Cholecalciferol 125 Mcg (5000 Iu) Tablet PO DAILY [facility] Cyanocobalamin 1,000 mcg 12/10/21 09:00 Cyanocobalamin 500 Mcg Tab PO DAILY [facility] Docusate Sodium 200 mg 12/10/21 09:00 Docusate 100 Mg Cap PO DAILY [facility] Heparin Sodium (Porcine) 5,000 unit 12/09/21 21:00 12/09/21 21:58 Heparin Sodium,Porcine/Pf 5,000 Unit/0.5 Ml Syringe SQ 5,000 unit Q12HR [facility] Administration Lisinopril 20 mg 12/10/21 09:00 Lisinopril 20 Mg Tab PO DAILY [facility] Loratadine 10 mg 12/10/21 09:00 Loratadine 10 Mg Tab PO DAILY [facility] Naloxone HCl 0.2 mg 12/09/21 16:36 Naloxone 0.4 Mg/Ml 1 Ml Vial IV Q2M PRN Opioid Reversal Pravastatin Sodium 40 mg 12/10/21 09:00 Pravastatin Sodium 40 Mg Tab PO DAILY [facility] Psyllium Hydrophilic Mucilloid 6 gm 12/10/21 09:00 Psyllium Husk 100% 6 Gm Packet PO DAILY [facility] Intake and Output 12/09/21 12/10/21 12/10/21 22:59 06:59 14:59 Intake Total 0 Balance 0 Intake: Oral 0 Other: Voiding Method Toilet # Voids 2 Weight 131.995 kg 12/09/21 15:46 12/09/21 15:46
[2021-12-10] MEDS: CHLORTHALIDONE 25 MG TAB PO SCH (10:44)
[2021-12-10] MEDS: PRAVASTATIN SODIUM 40 MG TAB PO SCH (10:44)
[2021-12-10] MEDS: PSYLLIUM HUSK 100% 6 GM PACKET PO SCH (10:44)
--- NOTE | 2021-12-10 12:00 | ECHOF ---
Referral Reason:chest pain MEASUREMENTS -------- HEIGHT: 160.0 cm WEIGHT: 132.0 kg BP: 187/67 RVIDd: 3.8 cm (< 3.3) IVSd: 1.3 cm (0.6 - 1.1) LVIDd: 4.6 cm (3.9 - 5.3) LVPWd: 1.2 cm (0.6 - 1.1) IVSs: 1.7 cm LVIDs: 2.4 cm LVPWs: 1.9 cm LAESV Index (A-L): 24.98 ml/m Ao Diam: 2.5 cm (2.0 - 3.7) AV Cusp: 1.5 cm (1.5 - 2.6) LA Diam: 4.3 cm (2.7 - 3.8) MV EXCURSION: 16.847 mm (> 18.000) MV EF SLOPE: 63 mm/s (70 - 150) EPSS: 0.3 cm MV E Mike: 1.01 m/s MV DecT: 243 ms MV A Mike: 1.17 m/s MV E/A Ratio: 0.86 RAP: 5.00 mmHg RVSP: 33.36 mmHg FINDINGS -------- Sinus rhythm. This was a technically difficult study with suboptimal apical views. The left ventricular size is normal. There is mild concentric left ventricular hypertrophy. Overa ll left ventricular systolic function is normal with, an EF between 55 - 60 %. The right ventricle is mild to moderately enlarged. Normal LA size by volume 22+/-6 ml/m2. The right atrial size is normal. 5.0mg of Lumason was utilized for enhancement of images Interatrial and interventricular septum intact. The aortic valve is trileaflet and appears structurally normal. There is no evidence of aortic regu rgitation. There is no evidence of aortic stenosis. Mild mitral regurgitation is present. Mild tricuspid regurgitation present. There is no evidence of pulmonary hypertension. The right v entricular systolic pressure, as measured by Doppler, is 33.36mmHg. There is no pulmonic regurgitation present. The aortic root size is normal. IVC Not well visulized. There is no pericardial effusion. CONCLUSIONS -------- 1. The left ventricular size is normal. 2. There is mild concentric left ventricular hypertrophy. 3. Overall left ventricular systolic function is normal with, an EF between 55 - 60 %. 4. The right ventricle is mild to moderately enlarged. 5. Mild mitral regurgitation is present. 6. Mild tricuspid regurgitation present. FITNESS COACH: Marilyn Willis RDCS
[2021-12-10 16:21] LABS: Chol/HDL Ratio 2.14 Ratio; LDL Cholesterol,Calculated 50.1 mg/dL (0.0-131.0)
[2021-12-11] MEDS ORDERED: DOBUTamine DRIP for NUC MED 500 MG/250 ML BAG IV ONE (08:00)
[2021-12-11] MEDS ORDERED: DOBUTamine DRIP for NUC MED 500 MG in DEXTROSE/WATER 1 250ML.BAG IV PRN (08:13)
[2021-12-11] MEDS: PRAVASTATIN SODIUM 40 MG TAB PO SCH (08:18)
[2021-12-11] MEDS: lisinopriL 20 MG TAB PO SCH (08:18)
[2021-12-11] MEDS: ASPIRIN 325 MG TAB PO SCH (08:18)
[2021-12-11] MEDS: HEPARIN SODIUM,PORCINE/PF 5,000 UNIT/0.5 ML SYRINGE SQ SCH (08:18)
[2021-12-11] MEDS: DOCUSATE 100 MG CAP PO SCH (08:18)
[2021-12-11] MEDS: LORATADINE 10 MG TAB PO SCH (08:18)
[2021-12-11] MEDS: CHLORTHALIDONE 25 MG TAB PO SCH (08:18)
[2021-12-11] MEDS: CYANOCOBALAMIN 500 MCG TAB PO SCH (08:19)
[2021-12-11] MEDS: CHOLECALCIFEROL 125 MCG (5000 IU) TABLET PO SCH (08:19)
[2021-12-11] MEDS: allopurinoL 100 MG TAB PO SCH (08:19)
[2021-12-11] MEDS: PSYLLIUM HUSK 100% 6 GM PACKET PO SCH (08:20)
[2021-12-11] MEDS ORDERED: amLODIPine 10 MG TAB PO SCH (09:00)
--- NOTE | 2021-12-11 10:27 | P.PN ---
Subjective Progress Note Date: 12/11/21 Hospital course: Patient is a very pleasant 76-year-old female with past medical history of nonobstructive coronary artery disease, hypertension, hyperlipidemia, o steoarthritis, previous PE status post long bone fracture (no longer on anticoagulation) and obesity. She presented to the emergency department with a chief complaint of chest pain/discomfort. Patient reports experiencing intermittent chest pain over the past week. She reports this pain is similar to the pain she gets from her osteoarthritis, but also states that this is different because this pain has continued throughout the week and will present at any time including while at rest or with movement, but is not reproducible. Patient denies having any associated symptoms including headache, lightheadedness, dizziness, palpitations, cough, congestion, or shortness of breath. She reports chronic bilateral lower extremity edema worse on the left resulting from previous injury and surgical repair and states this edema is unchanged. Patient states a significant family history of cardiovascular disease and reports that she was seen by a bowling floor manager, Dr. Peres approximately 16 years ago and states at that time she underwent a stress test which was abnormal and was then taken for cardiac cath, patient states that she does not recall the exact findings of the cardiac cath but remembers the bowling floor manager telling her that she only had a 20% blockage and that it was nothing to worry about. In the emergency department patient underwent full evaluation. EKG was completed showing normal sinus rhythm at 75 bpm with no noted T-wave or ST abnormalities showing no signs of acute ischemia. Chest x- ray was negative for acute cardiopulmonary process. CBC, CMP, and coags all unremarkable. Troponin less than 0.012. Vital signs stable. Patient was admitted under our services with consultation to cardiology. Echocardiogram was completed revealing a normal EF between 55 and 60% with no significant valvular abnormalities. Lipid profile unremarkable. Troponins were trended and all negative at less than 0.0123 draws. Adjustments were made to patient's blood pressure regimen as patient had episodes of hypertension throughout hospitalization. 12/10/21: Patient seen and fully evaluated at bedside this morning. Patient was also evaluated by bowling floor manager, Dr. Blair. Currently patient is free from chest pain and denies having any other complaints including headache, lightheadedness, dizziness, shortness of breath, nausea, vomiting, or experiencing any numbness/tingling/weakness in her extremities. Morning labs reviewed and remain unremarkable. Awaiting echocardiogram to be completed. Cardiology has increase patient's amlodipine from 5 mg to 10 mg daily and started patient on chlorthalidone 25 mg daily. 12/11/21: Patient seen and fully evaluated at bedside this morning. She is doing well. Blood pressure is much better controlled since previous medication changes were made. Patient reports despite control of blood pressure she continued to have some substernal chest pain throughout the night radiating into her back, neck and left shoulder. Cardiology evaluated, Dr. Blair planning to take patient for stress test later this afternoon. Patient currently denies having any complaints or needs at this time. Patient to continue medication regimen with aspirin, pravastatin, lisinopril, amlodipine, and chlorthalidone. Physical exam: Vital signs reviewed and stable. General: Nontoxic, no distress and appears stated age. Derm: Skin warm and dry, normal coloration for ethnicity. Head: Atraumatic, normocephalic and symmetric. Eyes: EOMs intact, no lid lag, and anicteric sclera Mouth: no lip lesions, mucus membranes moist Cardiovascular: regular rate and rhythm with normal S1S2, no murmur, positive posterior tibial pulses bilaterally, and cap refill < 2 seconds. Lungs: Respirations even, regular, and unlabored on room air. Lungs CTA bilaterally, no rhonchi, no rales, no wheezing, and no accessory muscle usage. Abdominal: Obese abdomen soft, nontender to palpation, no guarding, no appreciable organomegaly Ext: ROM intact. No gross muscle atrophy, bilateral lower extremity edema worse on left, no contractures. Bilateral lower extremity venous discoloration. Neuro: Speech clear, face symmetrical and CN II-XII grossly intact with no noted focal neuro deficits Psych: Alert and oriented to person, place, time, and situation. Appropriate and pleasant affect. Assessment and Plan of Care: Chest pain, rule out acute coronary event -Cardiology following, plans to take patient for stress test this afternoon. -Telemetry monitoring -Troponins negative -EKG negative for ischemic changes. -Cardiac diet -Continuation of aspirin and pravastatin. -Lipid profile unremarkable -Echocardiogram revealed normal EF between 55 and 60% with mild mitral and tricuspid regurgitation. Hypertension -Monitor vital signs, medication changes were made as patient was started on chlorthalidone 25 mg daily and amlodipine was increased from 5 mg to 10 mg daily in addition to continuation of daily lisinopril 20 mg. Blood pressure much better controlled. Hyperlipidemia -Continue daily medication regimen with pravastatin. -Lipid profile unremarkable. CODE STATUS: DO NOT RESUSCITATE/DO NOT INTUBATE DVT prophylaxis: Heparin Discussed with: Patient and RN Anticipated discharge date: Pending outcome of stress test, possibly later this afternoon Anticipated discharge place: Home A total of 34 minutes was spent on the care of this complex patient more than 50% of the time was spent in counseling and care coordination. I reviewed the documentation as provided by the NATHALIA above, who is the original author of this note. I agree with the documented assessment and plan, with the following changes: None Objective - Vital Signs Vital signs: Vital Signs Temp 97.5 F L 12/11/21 07:25 Pulse 70 12/11/21 07:25 Resp 12 12/11/21 07:25 BP 109/69 12/11/21 07:25 Pulse Ox 98 12/11/21 07:25 Intake & Output 12/10/21 12/11/21 12/11/21 18:59 06:59 18:59 Intake Total 300 Balance 300 Intake: Oral 300 Other: Voiding Method Toilet Toilet # Voids 3 2 - Labs CBC & Chem 7: 12/10/21 08:16 12/10/21 08:16 Labs: Abnormal Lab Results - Last 24 Hours (Table) 12/10/21 12/10/21 Range/Units 08:16 08:16 Hct 47.6 H (34.0-46.0) % Chloride 111 H (98-107) mmol/L Carbon Dioxide 21 L (22-30) mmol/L Glucose 113 H (74-99) mg/dL HDL Cholesterol 63.90 H (40.00-60.00) mg/dL
--- NOTE | 2021-12-11 10:56 | P.PN ---
Subjective HISTORY OF PRESENTING ILLNESS This is a pleasant 76-year-old female past medical history significant for nonobstructive coronary artery disease, hypertension, dyslipidemia, osteoarthritis, previous pulmonary embolism no longer on anticoagulation, ob esity. She does not follow with a electronic component processor. We have been asked to see in consultation for chest discomfort. Patient states she normally has chest discomfort due to her osteoarthritis with radiation to her left shoulder. However yesterday she had chest pressure in the center chest also rate into her left shoulder. She states that this was different than her normal pain with osteoarthritis and presented to emergency department for further. She denies any associated palpitations, shortness of breath, lightheadedness, dizziness, syncope or near syncope. She denies any symptoms or diaphoresis, nausea or vomiting. Her chest discomfort is nonexertional. No specific alleviating or aggravating factors. She states that she does have difficulty adhering to a low salt diet. She states she takes her antihypertensives as prescribed. She denies any history of [place], stroke, diabetes. She states approximately 16 years ago she underwent an abnormal stress test and underwent cardiac catheterization that revealed nonobstructive coronary artery disease, no stents were placed. DIAGNOSTICS EKG reveals sinus rhythm, heart rate 75, nonspecific ST-T wave abnormalities in lead III and aVF, no acute ST history of abnormalities Chest xray no acute cardiopulmonary process Laboratory reviewed, troponin negative 3 Echocardiogram revealed EF 5560 percent, mild mitral and tricuspid regurgitation 12/11/2021 Patient seen and examined at bedside, no acute distress. She did have an episode of mild chest discomfort overnight. She does also endorses upper bilateral back pain with radiation down her left arm. Her blood pressures improved with a BP of 109/69, heart rate 70, afebrile, oximetry is 98% on room air Echocardiogram reviewed with no acute findings normal ejection fraction and no significant wall motion abnormalities. She's currently maintained on amlodipine 10 mg daily, chlorthalidone 25 mg daily, lisinopril 20 mg daily, pravastatin 40 mg daily and aspirin 325 mg daily PHYSICAL EXAMINATION CONSTITUTIONAL: No apparent distress. HEENT: Neck supple No JVD. CHEST EXAMINATION: Lungs are clear to auscultation. No chest wall tenderness is noted on palpation or with deep breathing. HEART EXAMINATION: Regular rate and rhythm. S1, S2 heard. No murmurs, gallops or rub. ABDOMEN: Soft, nontender. Positive bowel sounds. EXTREMITIES: 2+ peripheral pulses, trace bilateral lower extremity edema and no calf tenderness. SKIN: warm, dry NEUROLOGIC EXAMINATION: Patient is awake, alert and oriented x3. ASSESSMENT Chest discomfort, acute coronary syndrome has been ruled out, likely due to uncontrolled hypertension, however this morning patient with upper back pain radiating down left arm. Hypertensive emergency, improved Nonobstructive coronary artery disease History of Hypertension Dyslipidemia, osteoarthritis History of pulmonary embolism no longer on anticoagulation Obesity BMI 52 PLAN An acute coronary event has been ruled out with no EKG evidence of ischemia and negative cardiac enzymes. We will perform Dobutamine Cardiolyte stress test. Continue amlodipine to 10mg daily and Chlorithalidone 25mg daily Continue statin Continue lisinopril 20mg daily From cardiology perspective, patient stress test with no evidence of ischemia, okay to discharge later today. Patient to follow up outpatient. If stress test is abnormal we will discuss possible angiography. Nurse practitioner note has been reviewed by physician. Signing provider agrees with the documented findings, assessment, and plan of care. Objective - Vital Signs Vital signs: Vital Signs Temp 97.5 F L 12/11/21 07:25 Pulse 70 12/11/21 07:25 Resp 12 12/11/21 07:25 BP 109/69 12/11/21 07:25 Pulse Ox 98 12/11/21 07:25 Intake & Output 12/10/21 12/11/21 12/11/21 18:59 06:59 18:59 Intake Total 300 Balance 300 Intake: Oral 300 Other: Voiding Method Toilet Toilet # Voids 3 2 - Labs CBC & Chem 7: 12/10/21 08:16 12/10/21 08:16 Labs: Abnormal Lab Results - Last 24 Hours (Table) 12/10/21 Range/Units 08:16 HDL Cholesterol 63.90 H (40.00-60.00) mg/dL
--- NOTE | 2021-12-11 13:43 | NM ---
EXAMINATION TYPE: NM stress dobutamine cardiolit DATE OF EXAM: 12/11/2021 COMPARISON: NONE HISTORY: Chest pain with radiation to left arm TECHNIQUE: After the intravenous administration of 10.1 mCi Tc 99m Sestamibi - Rest images obtained 45 minutes post injection. Dobutamine protocol was utilized and patient was injected with 26.0 mCi Tc 99m Sestamibi - Stress images obtained 20 minutes post injection. FINDINGS: Targeted heart rate was achieved during performance of the study, patient achieved 86% of predicted m aximal heart rate. Review of stress and rest SPECT images demonstrates no distinct perfusion abnormal ity. Gated analysis shows normal wall motion with an estimated left ventricular ejection fraction of 66 %. IMPRESSION: No scintigraphic evidence for reversible ischemia. Consider correlation for possible elevated ejectio n fraction with echocardiographic evaluation.
[2021-12-11 14:46] VITALS: BP 99/63; PULSE 71; RESP 14; TEMP 97.6
--- NOTE | 2021-12-11 15:30 | P.DS ---
Providers Date of admission: 12/09/21 16:36 Expected date of discharge: 12/11/21 Attending physician: Cherelle Crespo MD Consults: 12/09/21 16:37 Consult Physician Routine Consulting Provider: [facility] Consult Reason/Comments: chest pain of unknown etiology Do you want consulting provider notified?: Yes Primary care physician: Neil Rivera Hospital Course: Discharge Diagnosis: Chest pain, acute coronary event ruled out Hypertension, medication changes were made as patient was started on chlorthalidone 25 mg daily and amlodipine was increased from 5 mg to 10 mg daily in addition to continuation of daily lisinopril 20 mg. Blood pressure much better controlled. Hyperlipidemia, Continue daily medication regimen with pravastatin. Hospital Course: Patient is a very pleasant 76-year-old female with past medical history of nonobstructive coronary artery disease, hypertension, hyperlipidemia, osteoarthritis, previous PE status post long bone fracture (no longer on anticoagulation) and obesity. She presented to the emergency department with a chief complaint of chest pain/discomfort. Patient reports experiencing intermittent chest pain over the past week. She reports this pain is similar to the pain she gets from her osteoarthritis, but also states that this is different because this pain has continued throughout the week and will present at any time including while at rest or with movement, but is not reproducible. Patient denies having any associated symptoms including headache, lightheadedness, dizziness, palpitations, cough, congestion, or shortness of breath. She reports chronic bilateral lower extremity edema worse on the left resulting from previous injury and surgical repair and states this edema is unchanged. Patient states a significant family history of cardiovascular disease and reports that she was seen by a patient support tech, Dr. Peres approximately 16 years ago and states at that time she underwent a stress test which was abnormal and was then taken for cardiac cath, patient states that she does not recall the exact findings of the cardiac cath but remembers the patient support tech telling her that she only had a 20% blockage and that it was nothing to worry about. In the emergency department patient underwent full evaluation. EKG was completed showing normal sinus rhythm at 75 bpm with no noted T-wave or ST abnormalities showing no signs of acute ischemia. Chest x- ray was negative for acute cardiopulmonary process. CBC, CMP, and coags all unremarkable. Troponin less than 0.012. Vital signs stable. Patient was admitted under our services with consultation to cardiology. Echocardiogram was completed revealing a normal EF between 55 and 60% with no significant valvular abnormalities. Lipid profile unremarkable. Troponins were trended and all negative at less than 0.0123 draws. Adjustments were made to patient's blood pressure regimen as patient had episodes of hypertension throughout hospitalization. Patient underwent a dobutamine stress test, stress test was negative showing no skin to graphic evidence for reversible ischemia. Cardiology recommending patient to follow-up outpatient in their office. Patient is medically stable for discharge. Patient given discharge instructions on DASH diet and encouraged to follow up with PCP and cardiology as recommended. A total of 34 minutes of time were spent preparing this complex discharge summary. I reviewed the documentation as provided by the NATHALIA above, who is the original author of this note. I agree with the documented assessment and plan, with the following changes: None Patient Condition at Discharge: Stable Plan - Discharge Summary New Discharge Prescriptions: New amLODIPine [Norvasc] 10 mg PO DAILY 30 Days #30 tab Chlorthalidone [Hygroton] 25 mg PO DAILY 30 Days #30 tab lisinopriL [Zestril] 20 mg PO DAILY 30 Days #30 tab Continue Aspirin 325 mg PO DAILY Pravastatin Sodium [Pravachol] 40 mg PO DAILY allopurinoL [Zyloprim] 100 mg PO DAILY Cetirizine HCl [Zyrtec] 10 mg PO DAILY Docusate [Colace] 200 mg PO DAILY Cholecalciferol [Vitamin D3 (125 Mcg = 5000 Iu)] 125 mcg PO DAILY Psyllium Husk [Metamucil] 0.4 gm PO DAILY Cyanocobalamin (Vitamin B-12) [Vitamin B-12] 1,000 mcg PO DAILY Cinnamon Bark [Cinnamon] 1,000 mg PO DAILY Discontinued amLODIPine BESYLATE/BENAZEPRIL [amLODIPine BESYLATE/BENAZEPRIL 5-20 MG] 1 cap PO DAILY Discharge Medication List Aspirin 325 mg PO DAILY 12/24/16 [History] Cetirizine HCl [Zyrtec] 10 mg PO DAILY 12/24/16 [History] Pravastatin Sodium [Pravachol] 40 mg PO DAILY 12/24/16 [History] allopurinoL [Zyloprim] 100 mg PO DAILY 12/24/16 [History] Cholecalciferol [Vitamin D3 (125 Mcg = 5000 Iu)] 125 mcg PO DAILY 12/09/21 [History] Cinnamon Bark [Cinnamon] 1,000 mg PO DAILY 12/09/21 [History] Cyanocobalamin (Vitamin B-12) [Vitamin B-12] 1,000 mcg PO DAILY 12/09/21 [History] Docusate [Colace] 200 mg PO DAILY 12/09/21 [History] Psyllium Husk [Metamucil] 0.4 gm PO DAILY 12/09/21 [History] Chlorthalidone [Hygroton] 25 mg PO DAILY 30 Days #30 tab 12/11/21 [Rx] amLODIPine [Norvasc] 10 mg PO DAILY 30 Days #30 tab 12/11/21 [Rx] lisinopriL [Zestril] 20 mg PO DAILY 30 Days #30 tab 12/11/21 [Rx] Follow up Appointment(s)/Referral(s): Dada Rangel MD [STAFF PHYSICIAN] - 2 Weeks Neil Rivera MD [Primary Care Provider] - 1-2 days Patient Instructions/Handouts: DASH Eating Plan (DC), DASH Eating Plan (GEN), Hypertension (DC) Activity/Diet/Wound Care/Special Instructions: Activity: As tolerated. Take breaks as needed. Diet: Heart healthy and carb consistent diet. Avoid salts, or foods with hidden salts such as canned or boxed foods and frozen dinners. Extra salt makes your heart work harder and traps the fluid in your body for longer. Special Instructions: Take all of your medications as directed and remember to keep all of your doctor's appointments and follow-up as needed. Thank you for allowing us to participate in your care, it was truly a pleasure having you for our patient!!! Discharge Disposition: HOME SELF-CARE
--- NOTE | 2021-12-12 09:34 | EST ---
EXERCISE STRESS DATE OF SERVICE: December 09, 2021. INDICATION: Chest pain. AGE: 76 SEX: F HT: 5'2-1/2 " WT: 291 lbs. PROTOCOL: Dobutamine Cardiolite Stress STAGE: 3 DURATION OF EXERCISE: 7:32 infusion time HEART RATE REST: 75 BLOOD PRESSURE REST: 146/73 MAXIMUM HEART RATE ACHIEVED: 125 MAXIMUM BLOOD PRESSURE: 195/46 85% MPHR: 123 100% MPHR: 145 METS: NA STRESS DATA: Heart rate 75, pressure is 146/73 mmHg. Baseline EKG showed sinus mechanism. The patient exercised on the [place] protocol for a total of 7 minutes and 32 seconds and achieved 8 of METS. Max heart rate was 125, which is about 86% of maximum predicted heart rate and maximum blood pressure was 195/46 mmHg. Clinically the patient reported "felt sick/nauseated." No chest pain and no chest discomfort noted. The EKG did not show any significant ST or T-wave abnormalities meeting the criteria for ischemia. CONCLUSION: 1. Excellent exercise tolerance. 2. Mild EKG changes in response to exercise did not meet the criteria for ischemia. 3. Please follow up on the Cardiolite portion. MMODL / IJN: [id number] /
== END 2021-12-11 16:43 | disposition home or self-care (01) ==
LOC: EC 14:46 → 6NMEDSUR 16:36
PROVIDERS: ADMIT Internal Medicine; ATTEND Internal Medicine
DX: R07.89 Other chest pain (principal); I16.1 Hypertensive emergency; I11.9 Hypertensive heart disease without heart failure; M54.6 Pain in thoracic spine; I08.1 Rheumatic disorders of both mitral and tricuspid valves; I25.10 Atherosclerotic heart disease of native coronary artery without angina pectoris; M19.90 Unspecified osteoarthritis, unspecified site; E78.5 Hyperlipidemia, unspecified; R60.0 Localized edema; Z91.11 Patient's noncompliance with dietary regimen; Z66 Do not resuscitate; E66.9 Obesity, unspecified; Z68.43 Body mass index [BMI] 50.0-59.9, adult; Z79.82 Long term (current) use of aspirin; Z79.899 Other long term (current) drug therapy; Z88.1 Allergy status to other antibiotic agents; Z88.5 Allergy status to narcotic agent; Z86.711 Personal history of pulmonary embolism; Z87.81 Personal history of (healed) traumatic fracture; Z98.49 Cataract extraction status, unspecified eye; Z98.890 Other specified postprocedural states; Z83.3 Family history of diabetes mellitus; Z82.49 Family history of ischemic heart disease and other diseases of the circulatory system; Z82.5 Family history of asthma and other chronic lower respiratory diseases; Z84.0 Family history of diseases of the skin and subcutaneous tissue; Z82.61 Family history of arthritis
CPT/HCPCS: 96372 ×3; 99285; 36415; 93005; 93017; 80061; 80053; 80048; 83735; 84484; 85025 ×2; 85610; 85730; 71046; 78452; G0378 ×3; C8929; A9500; J1250; Q9950; J1644 ×3; 93306

== ENCOUNTER → 2022-01-01 | Outpatient (CLI) | payer MEDICARE, OTHER ==
--- NOTE | 2022-01-01 12:25 | CT ---
EXAMINATION TYPE: CT angio chest DATE OF EXAM: 01/01/2022 COMPARISON: No previous CT scan is available for comparison. HISTORY: CHEST PRESSURE CT DLP: 933 mGy.cm. Automated Exposure Control for Dose Reduction was Utilized. TECHNIQUE AND CONTRAST: CTA scan of the thorax is performed with IV Contrast, patient injected with 100ML mL of Isovue 370, t horacic aortic angiogram protocol. MIP and 3-D Images are created on an independent workstation and reviewed. FINDINGS: The ascending aorta measures 3.2 cm. Scattered arterial atherosclerotic calcifications. Unremarkable remainder of the thoracic and upper abdominal aorta without significant stenosis, occlusion, dissecti on or aneurysm. The left vertebral artery arises from the aortic arch, otherwise normal branching pat tern of the aortic arch. The pulmonary trunk measures 2.6 cm. No major or central pulmonary emboli. No gross cardiomegaly. Suspected hypertrophy of the left ventricle. Coronary arterial calcification. No pericardial effusion. 3 mm right upper lobe anterior nodule with slightly spiculated margin (image #16, series 6). Faintly calcified nodule is seen at the right lung base posteriorly. 5 mm faint nodu le is seen in the left lung base posteriorly (image #45, series 6). Slightly irregular nodule is seen in the left lower lobe measuring 5 mm (image #31, series 6). Smaller 3 mm left upper lobe nodule. Grossly unremarkable remainder of the lungs. Patent central airways. No pleural effusion. Small slidi ng hiatal hernia. No pathologically enlarged lymph nodes in the chest. Questionable gallbladder sludg e. Suspected healed fracture of the anterior aspect of the left fifth rib. Degenerative changes of th e thoracic spine. IMPRESSION: No significant thoracic aortic abnormality identified. Arterial atherosclerotic calcification includi ng coronary calcifications. No major or central pulmonary embolism. Scattered pulmonary nodules measuring up to 5 mm with a slightly spiculated nodule in the right upper lobe measuring 3 mm. Recommend follow-up CT scan in 3 months for reassessment. Other incidental find ings as described above.
== END | disposition home or self-care (01) ==
LOC: RADCTMAIN 08:00
PROVIDERS: ATTEND Family Medicine
DX: R91.8 Other nonspecific abnormal finding of lung field (principal); I25.10 Atherosclerotic heart disease of native coronary artery without angina pectoris
CPT/HCPCS: 82565; 84520; 71275; 36415; Q9967

== ENCOUNTER → 2022-02-26 | Outpatient (CLI) | payer MEDICARE, OTHER ==
[2022-02-26 08:06] VITALS: BP 128/74; PULSE 90; RESP 16; TEMP 97.8
== END ==
LOC: PROCWHC3 07:54
PROVIDERS: ATTEND Family Medicine
DX: M81.0 Age-related osteoporosis without current pathological fracture (principal); Z88.1 Allergy status to other antibiotic agents; Z88.5 Allergy status to narcotic agent
CPT/HCPCS: 96372; J0897

== ENCOUNTER → 2022-04-11 | Outpatient (CLI) | payer MEDICARE, OTHER ==
--- NOTE | 2022-04-11 11:04 | CT ---
EXAMINATION TYPE: CT chest w con DATE OF EXAM: 04/11/2022 COMPARISON: 01/01/2022 HISTORY: 77-year-old female Solitary Pulmonary Nodule TECHNIQUE: Contiguous axial scanning of the chest after the administration of 70 ML mL of Isovue 300. Coronal/sagittal reconstructions performed. CT DLP: 552.7mGycm. Automatic exposure control utilized for a dose reduction. FINDINGS: Heart upper limits of normal size without pericardial effusion. LAD and circumflex coronary artery ca lcifications are present. Aorta normal caliber with conventional chest branching anatomy. Borderline sized caliber to the main right and left pulmonary arteries up to 2.5 cm each. No thoracic lymph adenopathy by CT size criteria. Strandy atelectasis in the lower lungs. Calcified granuloma posterior right base is benign. A 6 mm pulmonary nodule posterior left base, axial image 43 is slightly more defined from prior exam. 3 mm right midlung pulmonary nodule previously not well seen, axial image 29. 6 mm right upper lobe pulmonary nodule, axial image 19 is unchanged. 4 mm left mid lung pulmonary nodule, axial image 25 is unchanged. Some strandy atelectasis in the lower lungs. No consolidation or pleural. There is a small to moderate-sized hilar hernia. Mild thickening of the left adrenal gland without di screte nodularity. Accentuated midthoracic kyphosis with dish throughout the thoracic spine. IMPRESSION: 1. Scattered 6 mm and smaller pulmonary nodules largely unchanged for 3 months. A 3 mm right mid lung pulmonary nodule was previously not well seen. Additional 9 month follow-up recommended. 2. Small to moderate-sized hiatal hernia.
== END | disposition home or self-care (01) ==
LOC: RADCTMAIN 07:24
PROVIDERS: ATTEND Internal Medicine Critical Care Medicine
DX: R91.8 Other nonspecific abnormal finding of lung field (principal); K44.9 Diaphragmatic hernia without obstruction or gangrene
CPT/HCPCS: 82565; 84520; 71260; Q9967

== ENCOUNTER → 2022-08-29 | Outpatient (CLI) | payer MEDICARE, OTHER ==
[2022-08-29 08:04] VITALS: BP 143/81; PULSE 80; RESP 16; TEMP 97.8
== END ==
LOC: PROCWHC3 07:48
PROVIDERS: ATTEND Family Medicine
DX: M81.0 Age-related osteoporosis without current pathological fracture (principal); Z88.1 Allergy status to other antibiotic agents; Z88.5 Allergy status to narcotic agent
CPT/HCPCS: 96372; J0897

== ENCOUNTER → 2022-09-17 | Outpatient (CLI) | payer MEDICARE, OTHER ==
--- NOTE | 2022-09-17 12:55 | US ---
EXAMINATION TYPE: US kidneys/renal and bladder DATE OF EXAM: 09/17/2022 COMPARISON: CT chest CLINICAL HISTORY: N18.31 CHRONIC KIDNEY DISEASE, STAGE 3A. CKD EXAM MEASUREMENTS: Right Kidney: 9.0 x 5.4 x 5.6 cm Left Kidney: 10.7 x 5.3 x 4.8 cm Morbidly obese pt, difficult visualization Right Kidney: No evidence of hydro, limited visualization due to large pt body habitus Left Kidney: No evidence of hydro, limited visualization due to large pt body habitus Bladder: wnl Bilateral Jets seen: No Exam is limited due to body habitus. IMPRESSION: No obvious renal ultrasound abnormality.
== END | disposition home or self-care (01) ==
LOC: RADUSWWP 12:12
PROVIDERS: ATTEND Family Medicine
DX: N18.31 Chronic kidney disease, stage 3a (principal)
CPT/HCPCS: 76770

== ENCOUNTER → 2022-11-24 | Outpatient (CLI) | payer MEDICARE ==
--- NOTE | 2022-11-25 15:20 | MM ---
Reason for Exam: Screening (asymptomatic). Last screening mammogram was performed 12 month(s) ago. Patient History: Menarche at age 16. Patient has no children. Postmenopausal. Estrogen for 1 year, 6 months, from age 56 until age 57. Maternal aunt had breast cancer. Risk Values: Nichole 5 year model risk: 1.8%. NCI Lifetime model risk: 3.6%. Prior Study Comparison: 11/26/2020 Left Diagnostic Mammogram, [facility]. 06/04/2021 Left Diagnostic Mammogram, [facility]. 11/21/2021 Bilateral Screening Mammogram, [facility]. Tissue Density: There are scattered fibroglandular densities. Findings: Analyzed By CAD. There is no suspicious group of microcalcifications or new suspicious mass in either breast. Stable chronic nodularity bilaterally. Overall Assessment: Benign, BI-RAD 2 Management: Screening Mammogram of both breasts in 1 year. A clinical breast exam by your physician is recommended on an annual basis and results should be correlated with mammographic findings. Electronically signed and approved by: James Rodriguez D.O.
== END | disposition home or self-care (01) ==
LOC: RADMAMWWP 08:10
PROVIDERS: ATTEND Family Medicine
DX: Z12.31 Encounter for screening mammogram for malignant neoplasm of breast (principal); Z78.0 Asymptomatic menopausal state; Z80.3 Family history of malignant neoplasm of breast
CPT/HCPCS: 77063; 77067

== ENCOUNTER → 2023-01-14 | Outpatient (CLI) | payer MEDICARE ==
--- NOTE | 2023-01-14 16:16 | US ---
EXAMINATION TYPE: US transvaginal DATE OF EXAM: 01/14/2023 COMPARISON: NONE CLINICAL INDICATION: Female, 78 years old with history of N81.4 UTEROVAGINAL PROLAPSE, UNSPECIFIED; P t states "uterus feels like it is falling out" TECHNIQUE: Transvaginal (TV). Transvaginal sonographic images of the pelvis were acquired. Pt morbidly obese, unable to visualize pelvis transabdominally Date of LMP: Pt states age mid 20's EXAM MEASUREMENTS: Uterus: 5.7 x 2.3 x 2.5 cm Endometrial Stripe: 0.4 cm 1. Uterus: Anteverted Heterogeneous, small in size consistent with pt's post menopausal status 2. Endometrium: wnl 3. Right Ovary: Obscured by overlying bowel gas 4. Left Ovary: Obscured by overlying bowel gas 5. Bilateral Adnexa: wnl 6. Posterior cul-de-sac: wnl IMPRESSION: Transvaginal scanning was needed due to patient size. Small, postmenopausal uterus. Unable to visuali ze either ovary.
== END | disposition home or self-care (01) ==
LOC: RADUSWWP 14:47
PROVIDERS: ATTEND Family Medicine
DX: N81.4 Uterovaginal prolapse, unspecified (principal); Z78.0 Asymptomatic menopausal state
CPT/HCPCS: 76830

== ENCOUNTER → 2023-02-24 | Outpatient (CLI) | payer MEDICARE ==
[2023-02-24 08:10] LABS: African American GFR (CKD) 70 (>60 ml/min/1.73 sqM); Blood Urea Nitrogen 21 mg/dL (7-17); Non-African American GFR(CKD) 60 (>60 ml/min/1.73 sqM)
--- NOTE | 2023-02-24 10:48 | CT ---
EXAMINATION TYPE: CT chest w con DATE OF EXAM: 02/24/2023 COMPARISON: 04/11/2022 HISTORY: 78-year-old female R91.8, abnormal lung nelson. TECHNIQUE: Contiguous axial scanning of the chest after the administration of 100 mL of Isovue 300. Coronal/sagittal reconstructions performed. CT DLP: 483.0 mGycm. Automatic exposure control utilized for a dose reduction. FINDINGS: Heart normal size without pericardial effusion. Three-vessel coronary artery calcifications are prese nt, extensive in the LAD. Aorta normal caliber with conventional arch vessel branching anatomy. No thoracic lymphadenopathy by CT size criteria. Mildly enlarged caliber to the main right pulmonary artery 2.7 cm may reflect underlying pulmonary hy pertension. No thoracic lymphadenopathy by CT size criteria. Mild patchy groundglass right midlung, axial image 23. No consolidation or pleural effusion. * Unchanged 6 mm right upper lobe, a nodule. * Unchanged 4 mm posterior right basilar pulmonary nodule. * Unchanged 3 mm lingular pulmonary nodule, axillary and 28. * 1.0 cm irregular pulmonary nodule left lower lobe, axial image 34 versus 7 mm on 04/11/2022. Small hiatal hernia. Visualized upper abdomen shows no gross abnormality otherwise. Bones: Accentuated thoracic kyphosis with dictation. Degenerative change left greater than right oleg rnoclavicular joint. IMPRESSION: 1. COPD with minimal emphysema. Most of the scattered pulmonary nodules measuring up to 6 mm remain u nchanged. 2. However, there appears to be an enlarging 1 cm left lower lobe pulmonary nodule, previously 7 mm. Early lung cancer not excluded. Three-month follow-up to reassess. If persistent enlargement, conside ration can be given to PET/CT. 3. Mild patchy groundglass right midlung could represent a small infectious/inflammatory focus. 4. Small hiatal hernia. 5. CAD including extensive LAD coronary artery calcifications.
== END | disposition home or self-care (01) ==
LOC: RADCTMAIN 07:26
PROVIDERS: ATTEND Internal Medicine Critical Care Medicine
DX: J43.9 Emphysema, unspecified (principal); K44.9 Diaphragmatic hernia without obstruction or gangrene; I25.10 Atherosclerotic heart disease of native coronary artery without angina pectoris; R91.8 Other nonspecific abnormal finding of lung field
CPT/HCPCS: 82565; 84520; 71260; 36415; Q9967

== ENCOUNTER → 2023-03-04 | Outpatient (CLI) | payer MEDICARE ==
[~2023-03-04] MED LIST changes: -DENOSUMAB 60 MG/ML 1 ML SYRINGE SQ NR; +DENOSUMAB 60 MG/ML 1 ML SYRINGE SQ ONE
[2023-03-04 14:14] VITALS: BP 128/64; PULSE 83; RESP 16; TEMP 98
== END ==
LOC: PROCWHC3 13:46
PROVIDERS: ATTEND Family Medicine
DX: M81.0 Age-related osteoporosis without current pathological fracture (principal)
CPT/HCPCS: 96372; J0897

== ENCOUNTER → 2023-09-30 | Outpatient (CLI) | payer MEDICARE ==
[~2023-09-30] MED LIST changes: +DENOSUMAB 60 MG/ML 1 ML SYRINGE SQ NR; -DENOSUMAB 60 MG/ML 1 ML SYRINGE SQ ONE
[2023-09-30 14:35] VITALS: BP 135/72; PULSE 86; RESP 16; TEMP 96
== END ==
LOC: PROCWHC3 13:55
PROVIDERS: ATTEND Family Medicine
DX: M81.0 Age-related osteoporosis without current pathological fracture (principal)
CPT/HCPCS: 96372; J0897

== ENCOUNTER → 2023-11-26 | Outpatient (CLI) | payer MEDICARE ==
--- NOTE | 2023-11-29 18:00 | MM ---
Reason for Exam: Screening (asymptomatic). Last screening mammogram was performed 12 month(s) ago. Patient History: Menarche at age 16. Patient has no children. Postmenopausal. Estrogen for 1 year, 6 months, from age 56 until age 57. Maternal aunt had breast cancer. Risk Values: Nichole 5 year model risk: 1.8%. NCI Lifetime model risk: 3.4%. Prior Study Comparison: 06/04/2021 Left Diagnostic Mammogram, [facility]. 11/21/2021 Bilateral Screening Mammogram, [facility]. 11/24/2022 Bilateral MG 3D screening mammo w/cad, [facility]. Tissue Density: There are scattered areas of fibroglandular density. Findings: Analyzed By CAD. Chronic nodularity on the left. There is no suspicious group of microcalcifications or new suspicious mass in either breast. Overall Assessment: Benign, BI-RAD 2 Management: Screening Mammogram of both breasts in 1 year. . Patient should continue monthly self-breast exams. A clinical breast exam by your physician is recommended on an annual basis. This exam should not preclude additional follow-up of suspicious palpable abnormalities. Note on Nichole scores and lifetime risk: 1. A Nichole score greater than 3% is considered moderate risk. If this is the case, consider specialist referral to assess eligibility for a risk reducing agent. 2. If overall lifetime risk for the development of breast cancer is 20% or higher, the patient may qualify for future screening with alternating mammogram and breast MRI. Electronically signed and approved by: Tito Pritchard M.D. Radiologist
== END | disposition home or self-care (01) ==
LOC: RADMAMWWP 07:53
PROVIDERS: ATTEND Family Medicine
DX: Z12.31 Encounter for screening mammogram for malignant neoplasm of breast (principal); Z78.0 Asymptomatic menopausal state; Z80.3 Family history of malignant neoplasm of breast
CPT/HCPCS: 77063; 77067

== ENCOUNTER → 2024-03-31 | Outpatient (CLI) | payer MEDICARE ==
[2024-03-31] MEDS: DENOSUMAB 60 MG/ML 1 ML SYRINGE SQ NR (14:40)
[2024-03-31 14:48] VITALS: BP 146/80; PULSE 77; RESP 16; TEMP 97.6
== END ==
LOC: PROCWHC3 14:10
PROVIDERS: ATTEND Family Medicine
DX: M81.0 Age-related osteoporosis without current pathological fracture (principal)
CPT/HCPCS: 96372; J0897

== ENCOUNTER → 2024-06-13 | Outpatient (CLI) | payer MEDICARE ==
[2024-06-13 09:36] LABS: African American GFR (CKD) 70 (>60 ml/min/1.73 sqM); Blood Urea Nitrogen 21 mg/dL (7-17); Non-African American GFR(CKD) 61 (>60 ml/min/1.73 sqM)
--- NOTE | 2024-06-13 10:40 | CT ---
EXAMINATION TYPE: CT chest w con CT DLP: 533.40 mGycm, Automated exposure control for dose reduction was used. DATE OF EXAM: 06/13/2024 9:48 AM COMPARISON: Pet/CT 04/04/2023, 02/24/2023 CT CLINICAL INDICATION: Female, 79 years old with history of R91.1 SPN; PHH, lung nodule TECHNIQUE: Multiple axial images were obtained through the chest. Sagittal and coronal reformats were created for review. MIP was performed on a separate workstation. Contrast used:100 mL of Isovue 300 with IV Contrast (None if empty) Oral contrast used: (None if empty) FINDINGS: LUNGS/ PLEURA: Stable right upper lobe 4 mm pulmonary nodule series 4 image 19. Stable right lower lo be posterior calcified granuloma measuring 4 mm series 4 image 38. Stable left lower lobe irregular s haped nodule series 4 image 30 measuring 12 x 9 mm. Mild centrilobular emphysema changes. No focal c onsolidation pneumothorax or pleural effusion. AIRWAY: Patent and unremarkable. HEART: Size within normal limits. MEDIASTINUM: No gross evidence of adenopathy. Small hiatal hernia. VASCULATURE: No aortic aneurysm. MUSCULOSKELETAL: No acute osseous abnormalities SOFT TISSUES/LYMPH NODES: Unremarkable. LOWER NECK: No significant findings. UPPER ABDOMEN: No significant findings. IMPRESSION: 1. Stable pulmonary nodules no new or enlarging pulmonary nodules continued yearly surveillance anastasia mmended. 2. Mild emphysema. 3. Small hiatal hernia. [facility], , 06/13/2024 10:38 AM
== END | disposition home or self-care (01) ==
LOC: RADCTMAIN 09:06
PROVIDERS: ATTEND Family Medicine
DX: R91.1 Solitary pulmonary nodule
CPT/HCPCS: 36415; 71260; 82565; 84520

== ENCOUNTER → 2024-10-03 | Outpatient (CLI) | payer MEDICARE ==
[2024-10-03 12:10] VITALS: BP 137/71; PULSE 85; RESP 16; TEMP 97.6
[2024-10-03] MEDS: DENOSUMAB 60 MG/ML 1 ML SYRINGE SQ NR (12:10)
== END ==
LOC: PROCWHC3 12:01
PROVIDERS: ATTEND Family Medicine
DX: M81.0 Age-related osteoporosis without current pathological fracture (principal)
CPT/HCPCS: 96372; J0897

== ENCOUNTER → 2025-03-08 | Outpatient (CLI) | payer MEDICARE, OTHER ==
--- NOTE | 2025-03-08 08:15 | MM ---
Reason for Exam: Screening (asymptomatic). Last mammogram was performed 1 year(s) and 3 month(s) ago. Patient History: Menarche at age 16. Patient has no children. Postmenopausal. Estrogen for 1 year, 6 months, from age 56 until age 57. Maternal aunt had breast cancer. Risk Values: Nichole 5 year model risk: 1.7%. NCI Lifetime model risk: 2.9%. Prior Study Comparison: 11/21/2021 Bilateral Screening Mammogram, [facility]. 11/24/2022 Bilateral MG 3D screening mammo w/cad, [facility]. 11/26/2023 Bilateral MG 3D screening mammo w/cad, [facility]. Tissue Density: There are scattered areas of fibroglandular density. Findings: Analyzed By CAD. Right breast: There is no suspicious group of microcalcifications or new suspicious mass. Left breast: There is no suspicious group of microcalcifications or new suspicious mass. Overall Assessment: Negative, BI-RAD 1 Management: Screening Mammogram of both breasts in [address] [facility] will attempt to contact patient to return for supplemental views and ultrasound if indicated. Patient should continue monthly self-breast exams. A clinical breast exam by your physician is recommended on an annual basis. This exam should not preclude additional follow-up of suspicious palpable abnormalities. Note on Nichole scores and lifetime risk: 1. A Nichole score greater than 3% is considered moderate risk. If this is the case, consider specialist referral to assess eligibility for a risk reducing agent. 2. If overall lifetime risk for the development of breast cancer is 20% or higher, the patient may qualify for future screening with alternating mammogram and breast MRI. [facility], , 03/08/2025 8:11 AM. Electronically signed and approved by: Thang Paul DO
== END | disposition home or self-care (01) ==
LOC: RADMAMWWP 07:49
PROVIDERS: ATTEND Family Medicine
DX: Z12.31 Encounter for screening mammogram for malignant neoplasm of breast (principal); R92.323 Mammographic fibroglandular density, bilateral breasts; Z78.0 Asymptomatic menopausal state; Z80.3 Family history of malignant neoplasm of breast
CPT/HCPCS: 77063; 77067

== ENCOUNTER → 2025-04-04 | Outpatient (CLI) | payer MEDICARE ==
[2025-04-04 11:17] VITALS: BP 136/54; PULSE 80; RESP 16; TEMP 97.4
[2025-04-04] MEDS: DENOSUMAB 60 MG/ML 1 ML SYRINGE SQ NR (11:19)
== END ==
LOC: PROCWHC3 11:04
DX: M81.0 Age-related osteoporosis without current pathological fracture (principal)
CPT/HCPCS: 96372; J0897